=== PATIENT | female | born 1995 | race African-American/Black ===

== ENCOUNTER 2020-08-14 11:12 | Emergency (ER) | payer OTHER, SELFPAY ==
[2020-08-14] VITALS (7 sets, daily range): BP systolic 119–128; BP diastolic 82–91; PULSE 65–74; RESP 16–20; TEMP 36.2; O2SAT 99–100
--- NOTE | ~2020-08-14 | XR_ITS ---
EXAMINATION: XR chest 2V DATE: 08/14/2020 11:35 INDICATION: Chest pain. Right arm pain. Hemoptysis. TECHNIQUE: Frontal and lateral views of the chest were obtained. COMPARISON: None. FINDINGS: The chest demonstrates clear lungs without pneumonia, pleural effusion, or pneumothorax. Th e heart size is normal. A catheter overlies the abdomen. IMPRESSION: 1. No acute cardiopulmonary disease. Reviewed, dictated and finalized at location A.
--- NOTE | 2020-08-14 11:14 | ECG_ITS ---
Measurements Intervals [place] Rate: 73 P: 50 MD: 168 QRS: 34 QRSD: 80 T: 28 QT: 359 QTc: 396 Interpretive Statements SINUS RHYTHM WITH SINUS ARRHYTHMIA INCOMPLETE RIGHT BUNDLE BRANCH BLOCK BASELINE ARTIFACT- I, II, AVR, V1 BORDERLINE ECG Electronically Signed On 08-14-2020 12:45:47 CDT by Cameron Brock D.O.
--- NOTE | 2020-08-14 11:46 | ED.CHESTPAIN ---
HPI - Chest Pain General Chief Complaint: Chest Pain Stated Complaint: RIGHT sided CP and RIGHT arm pain Time Seen by Provider: 08/14/20 11:46 Source: patient Mode of arrival: ambulatory Limitations: no limitations History of Present Illness HPI narrative: Patient is a 25-year-old female who presents via EMS for evaluation of chest pain. Chest pain is right-sided in nature with radiation to the left chest as well. She does have pain with a deep breath or pain with movement. She is denying any current shortness of breath for me. She states that pain began when she was moving pallets at work. Pain is currently moderate in nature. No associated radiation of the pain to the jaw, neck, back, or flanks. No ripping or tearing sensation. No associated weakness or numbness. No diaphoresis or syncope. Patient is not on control. She does not smoke. She denies history of sudden cardiac in the family. She denies any history of coronary artery disease. She denies palpitations. No recent travel. She did have COVID four months ago. Denies hospitalization from that illness. Related Data Allergies Allergy/AdvReac Type Severity Reaction Status Date / Time No Known Allergies Allergy Verified 08/14/20 12:31 Review of Systems Review of Systems: Narrative: CONSTITUTIONAL: Denies fever, chills, or sweats. EYES: Denies visual changes, redness, or discharge. ENT: Denies rhinorrhea, congestion, sore throat, or otalgia. CARDIOVASCULAR: Reports chest pain without palpitations or leg edema RESPIRATORY: Denies cough or dyspnea. GASTROINTESTINAL: Denies abdominal pain, nausea, vomiting, or diarrhea. GENITOURINARY: Denies dysuria or hematuria. SKIN: Denies rash or itching. MUSCULOSKELETAL: Denies back pain, joint pain, or myalgia. NEUROLOGIC: Denies headache, numbness, or weakness. Exam Narrative: Exam Narrative: GENERAL: Awake, alert, conversant HEAD: Normocephalic, atraumatic. EYES: PERRLA and EOMI. ENT: Nares clear, no rhinorrhea or epistaxis. Mucous membranes moist. NECK: Supple. CHEST: No respiratory distress, breathing even and non labored, reproducible left and right-sided chest wall tenderness, no crepitus, no ecchymoses HEART: Regular rate, sinus rhythm ABDOMEN:Non distended, non tender EXTREMITIES: Normal range of motion. No edema. No calf tenderness or erythema bilaterally. SKIN: Warm, dry, no rash. NEURO:No focal deficits. Alert and oriented x3 Course Vital Signs Vital signs: Vital Signs Temperature 36.2 C L 08/14/20 11:19 Pulse Rate 74 08/14/20 11:19 Respiratory Rate 16 08/14/20 11:19 Blood Pressure 120/84 08/14/20 11:19 Pulse Oximetry 100 08/14/20 11:19 Temperature 36.2 C L 08/14/20 11:19 Pulse Rate 71 08/14/20 14:35 Respiratory Rate 20 08/14/20 14:35 Blood Pressure 119/82 08/14/20 14:35 Pulse Oximetry 100 08/14/20 14:35 MDM - Chest Pain MDM Narrative Medical decision making narrative: Patient's EKG and labs are without significant high risk changes. Cardiac risk factors reviewed. Patient is felt low risk for ACS and reasonable for further risk stratification testing as an outpatient. Pain was not sudden or maximal or onset without tearing or ripping quality. No other signs or symptoms to suggest aortic dissection. A low risk well's criteria is noted, patient is PERC negative, thus d dimer not obtained as PE is felt to be unlikely. No pneumonia seen on evaluation today. Two negative troponin in the ED. because pain is reproducible on exam and was occurred with movement of a heavy pallet, this is most likely musculoskeletal chest wall strain. Patient is felt to be a reasonable candidate for continued evaluation as an outpatient as pain is most likely musculoskeletal in nature. Differential Diagnosis Differential diagnosis: Likely stable angina, unstable angina pectoris, atypical chest pain, st elevation myocardial infarction, costochondritis and chest pain Lab Data Attestation: I reviewed the patien
[2020-08-14 12:23] LABS: Basophils Percent Auto 0.3 % (0.2-1.2); Eosinophils Absolute Auto 0.2 K/mm3 (0-0.3); Eosinophils Percent Auto 2.4 % (0-4.4); Hematocrit 36.3 % (37.0-47.0); Hemoglobin 11.7 g/dL (12.0-15.0); Immature Granulocyte Absolute 0.04 K/mm3 (0.00-0.031); Immature Granulocyte Percent A 0.5 % (0-0.5); Lymphocytes Absolute Auto 1.91 K/mm3 (0.9-3.2); Mean Corpuscular HGB Conc 32.2 g/dl (32-36); Mean Corpuscular Hemoglobin 29.1 pg (26-34); Mean Corpuscular Volume 90.3 fl (80-100); Mean Platelet Volume 10.1 fl (7.4-10.4); Monocytes Absolute Auto 0.4 K/mm3 (0.1-0.6); Monocytes Percent Auto 4.9 % (2.6-8.5); Neutrophils Absolute Auto 6.1 K/mm3 (1.3-6.7); Neutrophils Percent Auto 69.9 % (45.5-73.1); Platelet Count Result 374 k/mm3 (150-375); Red Blood Count 4.02 M/mm3 (4.2-5.4); Red Cell Distribution Width 12.5 % (11.5-14.5); White Blood Count 8.7 K/mm3 (4.5-10.0)
[2020-08-14 12:28] LABS: Anion Gap 5 mmol/L (8-16); Blood Urea Nitrogen 8 mg/dL (7-17); Calcium 8.9 mg/dL (8.4-10.2); Carbon Dioxide 25 mmol/L (22-30); Chloride 110 mmol/L (98-107); Estimated CRCL calculation 98 ml/min; Estimated Glomerular Filt Rate > 60; Glucose 93 mg/dL (65-105); Sodium 140 mmol/L (137-145)
[2020-08-14 12:33] LABS: INR 0.9; Prothrombin Time 13.1 Seconds (11.1-14.7)
[2020-08-14 12:34] LABS: Partial Thromboplastin Time 24.5 SECONDS (22.3-36.8)
[2020-08-14] MEDS: ASPIRIN 81 MG CHEWABLE TABLET 324 MG PO (12:36)
[2020-08-14 12:40] LABS: Troponin I < 0.012 ng/mL (0.000-0.034)
[2020-08-14] MEDS: KETOROLAC 15 MG/ML VIAL (*BKC) IV PUSH (13:42)
[2020-08-14] MEDS: ACETAMINOPHEN 500 MG TABLET 1000 MG PO (13:43)
[2020-08-14 15:43] LABS: Troponin I < 0.012 ng/mL (0.000-0.034)
== END 2020-08-14 16:05 | disposition home or self-care (01) ==
PROVIDERS: Emergency Provider Emergency Medicine; PCP Family Medicine
DX: R07.89 Other chest pain (principal); S29.011A Strain of muscle and tendon of front wall of thorax, initial encounter; X58.XXXA Exposure to other specified factors, initial encounter; Z86.16 Personal history of COVID-19
CPT/HCPCS: 36415; 71046; 80048; 84484; 85025; 85610; 85730; 93005; 96374; 99284; A9270; J1885

== ENCOUNTER 2023-09-12 19:00 | Emergency (ER) | payer OTHER, SELFPAY ==
--- NOTE | ~2023-09-12 | US_ITS ---
EXAMINATION: US OB <= 14 weeks fetus DATE: 09/12/2023 22:44 INDICATION: Miscarriage. Spotting. TECHNIQUE: Real-time transabdominal and transvaginal pelvic ultrasound was performed. COMPARISON: None. FINDINGS: TRANSABDOMINAL ULTRASOUND: The uterus measures 16.2 x 0.1 x 10.7 cm. TRANSVAGINAL ULTRASOUND: There are 2 intrauterine gestational sacs by a thick membrane. The placentas are anterior and posterior. There is a small subchorionic hematoma. The crown rump length measures 5.3 cm for fetus A, which correlates with an estimated gestational age of 12 weeks an d 0 day(s) (+/-) 1 week(s) and 1 day(s). heart motion is identified measuring 157 beats per min xander (bpm) by M-mode Doppler. The crown rump length measures 5.3 cm for fetus B, which correlate s with an estimated gestational age of 12 weeks and 0 day(s) (+/-) 1 week(s) and 1 day(s). hear t motion is identified measuring 152 beats per minute (bpm) by M-mode Doppler. The right ovary measur es 3.5 x 1.8 x 2.2 cm. The left ovary measures 3.9 x 2.6 x 2.9 cm. There is no free fluid in the pelv is. IMPRESSION: 1. Living intrauterine dichorionic, diamniotic twin fetuses. 2. Small subchronic hematoma. Reviewed, dictated and finalized at location A.
[2023-09-12 19:03] VITALS: BP 137/73; PULSE 87; RESP 18; TEMP 36.4; O2SAT 99
[2023-09-12] MEDS: SODIUM CHLORIDE 0.9% IV 1,000 ML 999 ML IV CONT (20:16)
[2023-09-12] MEDS: ONDANSETRON INJ 4 MG/2 ML VIAL IV PUSH (20:16)
[2023-09-12] MEDS: MORPHINE SULFATE (*CRX) 4 MG/ML INJ IV PUSH (20:18)
[2023-09-12 20:32] LABS: Basophils Percent Auto 0.2 % (0.2-1.2); Eosinophils Absolute Auto 0.2 K/mm3 (0-0.3); Eosinophils Percent Auto 1.4 % (0-4.4); Hematocrit 36.2 % (37.0-47.0); Hemoglobin 12.3 g/dL (12.0-15.0); Immature Granulocyte Absolute 0.07 K/mm3 (0.00-0.031); Immature Granulocyte Percent A 0.5 % (0-0.5); Lymphocytes Absolute Auto 2.04 K/mm3 (0.9-3.2); Lymphocytes Percent Auto 14.8 % (18.3-44.2); Mean Corpuscular Hemoglobin 30.1 pg (26-34); Mean Corpuscular Volume 88.7 fl (80-100); Mean Platelet Volume 10.3 fl (7.4-10.4); Monocytes Absolute Auto 0.8 K/mm3 (0.1-0.6); Monocytes Percent Auto 5.8 % (2.6-8.5); Neutrophils Absolute Auto 10.7 K/mm3 (1.3-6.7); Neutrophils Percent Auto 77.3 % (45.5-73.1); Platelet Count Result 318 k/mm3 (150-375); Red Blood Count 4.08 M/mm3 (4.2-5.4); Red Cell Distribution Width 12.3 % (11.5-14.5); White Blood Count 13.8 K/mm3 (4.5-10.0)
[2023-09-12 20:36] LABS: Appearance Urine Cloudy (Clear); Bacteria Urine Rare /hpf; Bilirubin Urine Negative (Negative); Blood Urine 3+ (Negative); Color Urine Yellow (Yellow); Glucose Urine UA Negative (Negative); Ketones Urine Negative (Negative); Leukocyte Esterase Ur Trace LEU/UL (Negative); Nitrate Urine Negative (Negative); Non Pathogenic Casts 0-2; Protein Urine Trace mg/dL (Negative); RBC Urine 51-100 /hpf (0-2); Specific Grav Ur 1.009 (1.001-1.035); Squamous Epithelial Cell Urine Occasional /hpf (Few); pH Urine 6.5 (5.0-9.0)
[2023-09-12 20:42] LABS: Alanine Aminotransferase 13 U/L (6-35); Albumin Level 3.9 g/dL (3.5-5.1); Alkaline Phosphatase 88 U/L (38-126); Anion Gap 9 mmol/L (4-12); Aspartate Amino Transferase 18 U/L (14-36); Bilirubin,Total 0.3 mg/dL (0.2-1.3); Blood Urea Nitrogen 5 mg/dL (7-17); Calcium 9.4 mg/dL (8.4-10.2); Carbon Dioxide 19 mmol/L (22-30); Chloride 106 mmol/L (98-107); Estimated CRCL calculation 143 ml/min; Estimated Glomerular Filt Rate > 60; Glucose 85 mg/dL (65-110); Potassium 3.7 mmol/L (3.4-5.0); Sodium 134 mmol/L (137-145)
[2023-09-12 20:49] LABS: Add Urine Microscopic? YES
--- NOTE | 2023-09-12 21:21 | ED.BACK ---
HPI - Back Pain/Injury General Chief Complaint: Back Pain/Injury Stated Complaint: back pain, spotting (12 weeks ) Time Seen by Provider: 09/12/23 19:33 History of Present Illness HPI Narrative: 28 YEARS OLD FEMALE WOKE UP THIS MORNING WITH LOWER BACK PAIN. PATIENT IS TELLING ME THAT SHE IS PROBABLY CONSTIPATED, LAST BOWEL MOVEMENT WAS THIS MORNING, LAST 1 BEFORE THIS MORNING WAS 5 DAYS AGO. PATIENT REPORT LOWER ABDOMINAL PAIN FOR THE LAST 4 HOURS. ASSOCIATED WITH NAUSEA. PATIENT HAVE HISTORY OF NAUSEA AND VOMITING SECONDARY TO . PATIENT IS 12 WEEKS , TWINS,. CURRENTLY ON VITAMIN AND ZOFRAN. PATIENT DROVE HERSELF TO THE EMERGENCY ROOM. SHE DENIES ANY FEVER OR CHILLS OR VAGINAL BLEEDING OR DISCHARGE. PATIENT NOTICED SOME BLOOD IN HER URINE TODAY. Related Data Allergies Allergy/AdvReac Type Severity Reaction Status Date / Time No Known Allergies Allergy Verified 09/12/23 19:05 Review of Systems Review of Systems: All systems reviewed & are unremarkable except as noted in HPI and below Exam Narrative: GENERAL APPEARANCE: WELL-DEVELOPED, WELL-NOURISHED SKIN: NORMAL COLOR HEAD: NORMOCEPHALIC, NONTRAUMATIC EYES: CLEAR CONJUNCTIVA ENT: OROPHARYNX NORMAL, EARS NORMAL, NOSE NORMAL NECK: SUPPLE, NONTENDER CHEST AND RESPIRATORY: AIRWAY PATENT, NO RESPIRATORY DISTRESS, NO ACCESSORY MUSCLE USE HEART: REGULAR RATE/RHYTHM ABDOMEN: SOFT, SLIGHT TENDERNESS SUPRAPUBIC AREA, NO GUARDING OR REBOUND, NO ORGANOMEGALY, QUIET BOWEL SOUNDS PELVIC EXAM SHOWED NO BLOOD IN THE VAGINAL POUCH. VASCULAR: NORMAL PERIPHERAL PULSES, NORMAL CAPILLARY REFILL. 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, NO GROSS MOTOR DEFICIT Course Vital Signs Vital signs: Vital Signs Temperature 36.4 C 09/12/23 19:03 Pulse Rate 87 09/12/23 19:03 Respiratory Rate 18 09/12/23 19:03 Blood Pressure 137/73 09/12/23 19:03 Pulse Oximetry 99 09/12/23 19:03 Oxygen Delivery Room Air 09/12/23 19:03 Temperature 36.4 C 09/12/23 19:03 Pulse Rate 87 09/12/23 19:03 Respiratory Rate 18 09/12/23 19:03 Blood Pressure 137/73 09/12/23 19:03 Pulse Oximetry 99 09/12/23 19:03 Oxygen Delivery Room Air 09/12/23 19:03 MDM - Back Pain/Injury MDM Narrative Medical decision making narrative: PATIENT CAME WITH BLOOD IN URINE, LOWER BACK PAIN SHE SAID WITH NAUSEA, PHYSICAL EXAMINATION IS UNREMARKABLE DIFFERENTIAL DIAGNOSIS URINARY TRACT INFECTION, CONSTIPATION BLOOD WORKUP TODAY SHOWED NO ACUTE ABNORMALITIES, URINALYSIS POSITIVE FOR HEMATURIA WHICH HIGH LIKELY SECONDARY TO INFECTION. VAGINAL EXAM SHOWED NO BLOOD IN THE VAGINAL POUCH INDICATING THE BLOOD ONLY IN THE URINE. PATIENT WILL BE DISCHARGED ON AMOXICILLIN FOR POSSIBLE URINARY TRACT INFECTION. PELVIC ULTRASOUND SHOWED Differential Diagnosis Differential diagnosis: Likely other ( ABOVE) Medical Records Attestation: I reviewed the patient's medical records. Lab Data Attestation: I reviewed the patient's lab results. 09/12/23 20:25 09/12/23 20:25 Labs: Lab Results 09/12/23 Range/Units 20:25 WBC 13.8 H (4.5-10.0) K/mm3 RBC 4.08 L (4.2-5.4) M/mm3 Hgb 12.3 (12.0-15.0) g/dL Hct 36.2 L (37.0-47.0) % MCV 88.7 (80-100) fl MCH 30.1 (26-34) pg MCHC 34.0 (32-36) g/dl RDW 12.3 (11.5-14.5) % Plt Count 318 (150-375) k/mm3 MPV 10.3 (7.4-10.4) fl Immature Gran % (Auto) 0.5 (0-0.5) % Neut % (Auto) 77.3 H (45.5-73.1) % Lymph % (Auto) 14.8 L (18.3-44.2) % [place] %
[2023-09-13] MEDS: AMOXICILLIN 500 MG CAPSULE PO (00:18)
== END 2023-09-13 00:56 | disposition home or self-care (01) ==
PROVIDERS: Emergency Provider Emergency Medicine; PCP Family Medicine
DX: O23.41 Unspecified infection of urinary tract in pregnancy, first trimester (principal); N39.0 Urinary tract infection, site not specified; O30.041 Twin pregnancy, dichorionic/diamniotic, first trimester; Z3A.12 12 weeks gestation of pregnancy
CPT/HCPCS: 36415; 76801; 80053; 81001; 85025; 85461; 86850; 86900; 86901; 87086; 96361; 96374; 96375; 99284; A9270; J2270; J2405; J7030

== ENCOUNTER 2023-10-26 14:56 | Emergency (ER) | payer OTHER, SELFPAY ==
--- NOTE | ~2023-10-26 | US_ITS ---
EXAMINATION: US OB limited DATE: 10/26/2023 16:55 INDICATION: 19 weeks twins, pain, confirm FHT . TECHNIQUE: Real-time ultrasound of the pelvis was performed. COMPARISON: 09/12/2023. FINDINGS: Twin . The cervix is closed. Baby A: Breech presentation, longitudinal lie. The placenta is anterior. 1.8 x 4.9 x 0.9 cm hypoecho ic avascular area in the placenta, likely placental ulloa. heart rate is 161 bpm. The deepest am niotic fluid pocket measures 3.1 cm. Baby B: Breech presentation, transverse lie. The placenta is anterior. heart rate 151 bpm. Deep est amniotic fluid pocket measures 5.7 cm. IMPRESSION: Viable twin , both in breech presentation. Reviewed, dictated and finalized at location K.
[2023-10-26 14:59] VITALS: BP 126/58; PULSE 87; RESP 18; TEMP 36.4; O2SAT 100
--- NOTE | 2023-10-26 15:32 | PC.NURSE ---
Wendie spoke with Cass in OB and she is going to come and monitor for contractions
--- NOTE | 2023-10-26 15:59 | ED.ABDPAIN ---
HPI - Abdominal Pain General Chief Complaint: Abdominal Pain Stated Complaint: abdominal pain/ back pain 19 weeks Time Seen by Provider: 10/26/23 15:31 Source: patient Mode of arrival: ambulatory Limitations: no limitations History of Present Illness HPI narrative: Patient is a 28 y/o female who presents to the ED with c/o lower abdominal pain. Patient is A1 and currently 19 weeks gestation with twins. Sees Izzy Gregory PRIMARY CARE NURSE with OBGYN in [place], [place]. Last had an appt 2 weeks ago with an and states everything was normal. Reports she began having lower back pain since last night. Also reports having lower abdominal pain for the last 2 hours. States it is intermittent. Prompted here for further evaluation. She has not taken any Tylenol. Denies nausea, vomiting, diarrhea, constipation, fevers. She does admit to intermittent dysuria. Denies hematuria, vaginal bleeding. Related Data Allergies Allergy/AdvReac Type Severity Reaction Status Date / Time No Known Allergies Allergy Verified 09/12/23 19:05 Review of Systems Review of Systems: CONSTITUTIONAL: Denies fever, chills, or sweats. GASTROINTESTINAL: See HPI. GENITOURINARY: See HPI. MUSCULOSKELETAL: See HPI. All systems reviewed & are unremarkable except as noted in HPI and below Exam Narrative: GENERAL: Well appearing, BMI of 32.9, non-toxic, in no acute distress. HEAD: Normocephalic, atraumatic. RESPIRATORY: Airway patent, respirations nonlabored. Clear to auscultation bilaterally, no rales, rhonchi, wheezing. CARDIOVASCULAR: Regular rate and rhythm without murmurs, rubs, or gallops. ABDOMINAL: Soft, uterus gravid near umbilicus, mild tenderness over lower abdomen, suprapubic region. Nondistended. Normoactive BS. MUSCULOSKELETAL: Moves all extremities. No gross deformities. SKIN: Warm, dry, normal color. NEURO: A&O X3. Speech clear. PSYCHIATRIC: Appropriate mood and affect. Normal interaction. Course Vital Signs Vital signs: Vital Signs Temperature 97.6 F 10/26/23 14:59 Pulse Rate 87 10/26/23 14:59 Respiratory Rate 18 10/26/23 14:59 Blood Pressure 126/58 L 10/26/23 14:59 Pulse Oximetry 100 10/26/23 14:59 Oxygen Delivery Room Air 10/26/23 14:59 Temperature 98.3 F 10/26/23 18:18 Pulse Rate 75 10/26/23 18:18 Respiratory Rate 18 10/26/23 18:18 Blood Pressure 135/72 10/26/23 18:18 Pulse Oximetry 95 10/26/23 18:18 Oxygen Delivery Room Air 10/26/23 14:59 MDM - Abdominal Pain MDM Narrative Medical decision making narrative: Patient presented to ED with lower abdominal and lower back pain. Currently 19 weeks gestation, twin . Vitals are stable. Patient in no acute distress. OB ultrasound was obtained and showing viable twin , both in breech position, good heart tones. Basic laboratory studies fairly unremarkable. WBC 14.4. Patient denies infectious sx's. May be related. Hgb 10.6. Patient denying any recent bleeding. CMP unremarkable. UA appears infected, will treat given status and acute symptomatology. OB came to monitor patient in the ED, no contractions noted. Good FHT. Patient updated on lab and imaging findings. Will discharge at this time with oral abx. Advised to have close f/u with OBGYN for further evaluation. patient feeling better after Tylenol. Discussed strict return precautions. She agrees with plan and feels comfortable with discharge home. Discharged in stable condition. Medical Records Attestation: I reviewed the patient's medical records. Lab Data Attestation: I reviewed the patient's lab results. 10/26/23 17:22 10/26/23 17:22 Labs: Lab Results 10/26/23 Range/Units 17:22 WBC 14.4 H (4.5-10.0) K/mm3 RBC 3.45 L (4.2-5.4) M/mm3 Hgb 10.6 L (12.0-15.0) g/dL Hct 31.9 L (37.0-47.0) % MCV 92.5 (80-100) fl MCH 30.7 (26-34) pg MCHC 33.2 (32-36) g/dl RDW 13.5
--- NOTE | 2023-10-26 17:04 | PC.NURSE ---
Patient is 19 weeks with twins, denies complications with , patient reports this is her third . Difficulty tracing babies due to getational age. Baby A noted to be 160's. Baby B noted to be 155. No contractions noted or palpated during monitoring. Monitored from [id number] for contractions. FHT's be traced at 1652.
[2023-10-26 17:34] LABS: Basophils Percent Auto 0.2 % (0.2-1.2); Eosinophils Absolute Auto 0.2 K/mm3 (0-0.3); Eosinophils Percent Auto 1.4 % (0-4.4); Hematocrit 31.9 % (37.0-47.0); Hemoglobin 10.6 g/dL (12.0-15.0); Immature Granulocyte Percent A 0.7 % (0-0.5); Lymphocytes Absolute Auto 1.91 K/mm3 (0.9-3.2); Lymphocytes Percent Auto 13.3 % (18.3-44.2); Mean Corpuscular HGB Conc 33.2 g/dl (32-36); Mean Corpuscular Hemoglobin 30.7 pg (26-34); Mean Corpuscular Volume 92.5 fl (80-100); Mean Platelet Volume 10.4 fl (7.4-10.4); Monocytes Percent Auto 6.6 % (2.6-8.5); Neutrophils Absolute Auto 11.2 K/mm3 (1.3-6.7); Neutrophils Percent Auto 77.8 % (45.5-73.1); Platelet Count Result 296 k/mm3 (150-375); Red Blood Count 3.45 M/mm3 (4.2-5.4); Red Cell Distribution Width 13.5 % (11.5-14.5); White Blood Count 14.4 K/mm3 (4.5-10.0)
[2023-10-26] MEDS: ACETAMINOPHEN 500 MG TABLET 1000 MG PO (17:34)
[2023-10-26 17:44] LABS: Alanine Aminotransferase 18 U/L (6-35); Albumin Level 3.3 g/dL (3.5-5.1); Alkaline Phosphatase 90 U/L (38-126); Anion Gap 5 mmol/L (4-12); Aspartate Amino Transferase 30 U/L (14-36); Bilirubin,Total 0.3 mg/dL (0.2-1.3); Blood Urea Nitrogen 5 mg/dL (7-17); Calcium 9.4 mg/dL (8.4-10.2); Carbon Dioxide 22 mmol/L (22-30); Chloride 109 mmol/L (98-107); Estimated CRCL calculation 125 ml/min; Estimated Glomerular Filt Rate > 60; Glucose 90 mg/dL (65-110); Potassium 3.7 mmol/L (3.4-5.0); Sodium 136 mmol/L (137-145)
[2023-10-26 17:50] LABS: Appearance Urine Turbid (Clear); Bacteria Urine 4+ /hpf; Bilirubin Urine Negative (Negative); Blood Urine Negative (Negative); Calcium Oxalate Crystals Urine Present /hpf; Color Urine Dark Yellow (Yellow); Glucose Urine UA Negative (Negative); Ketones Urine Trace mg/dL (Negative); Leukocyte Esterase Ur 2+ LEU/UL (Negative); Nitrate Urine Negative (Negative); Non Pathogenic Casts 0-2; Protein Urine Trace mg/dL (Negative); Specific Grav Ur 1.029 (1.001-1.035); Squamous Epithelial Cell Urine Many /hpf (Few)
[2023-10-26 17:51] LABS: Add Urine Microscopic? YES
[2023-10-26 18:18] VITALS: BP 135/72; PULSE 75; RESP 18; TEMP 36.8; O2SAT 95
== END 2023-10-26 18:21 | disposition home or self-care (01) ==
PROVIDERS: Emergency Provider Physician Assistant
DX: O23.42 Unspecified infection of urinary tract in pregnancy, second trimester (principal); N39.0 Urinary tract infection, site not specified; Z3A.19 19 weeks gestation of pregnancy
CPT/HCPCS: 36415; 76815; 80053; 81001; 85025; 87086; 87088; 99284; A9270

== ENCOUNTER 2025-03-29 09:54 | Emergency (ER) | payer OTHER, SELFPAY ==
--- NOTE | ~2025-03-29 | US_ITS ---
EXAMINATION: Ultrasound pelvis OB limited: DATE: 03/29/2025. INDICATION: 4, para 3. Positive test. Lower abdominal pain. No mention of vaginal bleeding. TECHNIQUE: Transabdominal and transvaginal ultrasound examination Doppler. were obtained. COMPARISON: None previous of this . FINDINGS: Single live fetus is noted in an intrauterine gestation. [place]-rump length of 3.2 cm corresponds to 10 weeks 1 day of gestational age placing the new date on 10/25/2015. heart rate is calculated at 1 71 bpm. Fluid volume is normal. Posterior placenta. Cervix is not completely visualized. No adnexal mass or fluid collections. Normal size ovaries with perfusion. No free fluid. IMPRESSION: 1. Intrauterine uterine gestational sac with single live fetus 10 weeks 1 day in size. Normal heart rate. 2. No adnexal mass or fluid collections are seen. Reviewed, dictated and finalized at location T. 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 Intrauterine uterine gestational sac with single live fetus 10 weeks 1 day i n size. Normal heart rate. 2. No adnexal mass or fluid collections are seen.
[2025-03-29 10:03] VITALS: BP 132/67; PULSE 84; RESP 17; TEMP 36.4; O2SAT 99
[2025-03-29 11:20] LABS: BEDSIDEPREGUCG Positive (Negative)
[2025-03-29 12:24] LABS: Add Urine Microscopic? YES; Appearance Urine Cloudy (Clear); Budding Yeast Urine Present /hpf; Glucose Urine UA Negative (Negative); Leukocyte Esterase Ur 2+ LEU/UL (Negative); Need Manual Microscopic Reviewed; Nitrate Urine Negative (Negative); Specific Grav Ur 1.028 (1.001-1.035)
[2025-03-29] MEDS: HYDROcodone/acetaminophen (*CRX) 5-325 MG TABLET 1 TAB PO (12:37)
[2025-03-29 13:22] LABS: Alanine Aminotransferase 13 U/L (6-35); Albumin Level 4.0 g/dL (3.5-5.1); Alkaline Phosphatase 95 U/L (38-126); Anion Gap 8 mmol/L (4-12); Aspartate Amino Transferase 22 U/L (14-36); Bilirubin,Total 0.5 mg/dL (0.2-1.3); Blood Urea Nitrogen 6 mg/dL (7-17); Calcium 9.0 mg/dL (8.4-10.2); Carbon Dioxide 20 mmol/L (22-30); Chloride 106 mmol/L (98-107); Estimated CRCL calculation 114 ml/min; Estimated Glomerular Filt Rate > 60; Glucose 79 mg/dL (65-110); Potassium 4.1 mmol/L (3.4-5.0); Sodium 134 mmol/L (137-145); Total Protein 7.6 g/dL (6.3-8.2)
--- NOTE | 2025-03-29 13:25 | ED_ITS ---
HPI - Back Pain/Injury General Chief Complaint: Back Pain/Injury Stated Complaint: back pain/ abd cramping + preg Time Seen by Provider: 03/29/25 12:19 History of Present Illness HPI Narrative: Pt presents with pain in lower abdomen and low back. Pt has some vaginal spotting and unsure if on menses or miscarrying as she spotted a lot during her last . Pt denies urinary symptoms. Related Data Allergies Allergy/AdvReac Type Severity Reaction Status Date / Time No Known Allergies Allergy Verified 03/29/25 09:55 Review of Systems 2 Review of Systems: All systems reviewed & are unremarkable except as noted in HPI and below Exam 2 Const: General: healthy appearing and no acute distress Nutritional Appearance: well nourished Orientation/consciousness: patient oriented x3 Limitations: no limitations Eyes: Pupils: Equal, round and reactive pupils present EOM: EOMs intact bilaterally Neck: Neck: normal visual inspection Resp: Effort & Inspection: normal respiratory effort Auscultation: clear to auscultation bilaterally Cardio: Rate: regular rate Rhythm: regular rhythm GI: Auscultation: normal bowel sounds Other: mild suprapubic tenderness Back/Spine/Pelvis: Other: minimal low lumbar tenderness Skin: General skin exam: normal color Rashes: no rashes Wounds: no wounds Neuro: General: patient oriented x3, moves all extremities, no meningeal signs, no focal motor deficits and CN's II-XI intact bilaterally Speech: n ormal speech Extrem: General: normal to inspection and no clubbing, cyanosis or edema Psych: Mental Status: mental status grossly normal Affect: normal affect Attitude: cooperative Course Vital Signs Vital signs: Vital Signs Temperature 97.6 F 03/29/25 10:03 Pulse Rate 84 03/29/25 10:03 Respiratory Rate 17 03/29/25 10:03 Blood Pressure 132/67 03/29/25 10:03 Pulse Oximetry 99 03/29/25 10:03 Temperature 97.6 F 03/29/25 10:03 Pulse Rate 85 03/29/25 18:41 Respiratory Rate 16 03/29/25 18:41 Blood Pressure 116/58 L 03/29/25 18:41 Pulse Oximetry 99 03/29/25 18:41 MDM - Back Pain/Injury MDM Narrative Medical decision making narrative: Pt presents with low abd pain and low back pain. will get hcg and ua and labs. Pt has high BHCG will get sono. sono shows iup pt also has uti and yeast in urine. will put on antibiotics and monistat Differential Diagnosis Differential diagnosis: Likely lumbar radiculopathy, sciatica, strain of lumbar region and other (uti, pregnanct miscarriage, menses) Lab Data Attestation: I reviewed the patient's lab results. 03/29/25 12:45 03/29/25 12:45 Labs: Lab Results 03/29/25 03/29/25 03/29/25 Range/Units 10:07 11:43 12:45 WBC 10.1 H (4.5-10.0) K/mm3 RBC 4.22 (4.2-5.4) M/mm3 Hgb 12.5 (12.0-15.0) g/dL Hct 37.7 (37.0-47.0) % MCV 89.3 (80-100) fl MCH 29.6 (26-34) pg MCHC 33.2 (32-36) g/dl RDW 13.1 (11.5-14.5) % Plt Count 307 (150-375) k/mm3 MPV 10.6 H (7.4-10.4) fl Immature Gran % (Auto) 0.4 (0-0.5) % Neut % (Auto) 72.0 (45.5-73.1) % Lymph % (Auto) 19.0 (18.3-44.2) % [place] % (Auto) 6.3 (2.6-8.5) % Eos % (Auto) 2.0 (0-4.4) % Baso % (Auto) 0.3 (0.2-1.2) % Lymph # (Auto) 1.92 (0.9-3.2) K/mm3 [place] # (Auto) 0.6 (0.1-0.6) K/mm3 Eos # (Auto) 0.2 (0-0.3) K/mm3 Baso # (Auto) 0.0 (0.0-0.1) K/mm3 Abs Immat Gran (auto) 0.04 H (0.00-0.031) K/mm3 Absolute Neuts (auto) 7.3 H (1.3-6.7) K/mm3 Absolute Nucleated RBC 0.000 (0.0-0.012) K/mm3 Nucleated RBC % 0.0 (0.0-0.2) % Sodium 134 L (137-145) mmol/L Potassium 4.1 (3.4-5.0) mmol/L Chloride 106 (98-107) mmol/L Carbon Dioxide 20 L (22-30) mmol/L Anion Gap 8 (4-12) mmol/L BUN 6 L (7-17) mg/dL Creatinine 0.65 L (0.7-1.0) mg/dL Estim Creat Clear Calc 114 ml/min Estimated GFR > 60 (59 - ) Glucose 79 (65-110) mg/dL Calcium 9.0 (8.4-10.2) mg/dL Total Bilirubin 0.5 (0.2-1.3) mg/dL AST 22 (14-36) U/L ALT 13 (6-35) U/L Alkaline Phosphatase 95 (38-126) U/L Total Protein 7.6 (6.3-8.2) g/dL Albumin 4.0 (3.5-5.1) g/dL Beta HCG, Quant 238517.00 mIU/ML Urine Color Yellow (Yellow) Urine Appearance Cloudy H (Clear) Urine pH 5.5 (5.0-9.0) Ur Specific [place] 1.028 (1.001-1.035) Urine Protein Trace (Negative) mg/dL Urine Glucose (UA) Negative (Negative) mg/dL Urine Ketones Trace H (Negative) mg/dL Ur Blood (Man) Trace (Negative) Urine Nitrate Negative (Negative) Urine Bilirubin Negative (Negative) Urine Urobilinogen 1.0 (<2.0) mg/dL Add Ur Microanalysis Reviewed Leukocyte Esterase Rfl 2+ H (Negative) OCTAVIO/UL Urine RBC 3-5 H (0-2) /hpf Urine WBC 51-100 H (0-3) /hpf Ur Squamous Epith Cells Moderate (Few) /hpf Urine Bacteria 4+ H /hpf Urine Casts 6-10 Urine Yeast (Budding) Present H (None) /hpf POC Urine HCG, Qual Positive (Negative) Blood Type B Positive Antibody Screen Negative Imaging Data Radiologist's impression: [facility] [address] [place] [id number] Ultrasound Report Signed Patient: Murphy Hardwick : 1995 MR#: [id number] Age: 30 Acct:[id number] Loc: [facility] ADM Date: 03/29/[address]: Ordering Physician: Suly Mcgowan III, DO Date of Service: 03/29/25 Procedure(s): US OB <= 14 weeks fetus Accession Number(s): [id number] cc: Suly Mcgowan III, ~ EXAMINATION: Ultrasound pelvis OB limited: DATE: 03/29/2025. INDICATION: 4, para 3. Positive test. Lower abdominal pain. No mention of vaginal bleeding. TECHNIQUE: Transabdominal and transvaginal ultrasound examination Doppler. were obtained. COMPARISON: None previous of this . FINDINGS: Single live fetus is noted in an intrauterine gestation. Clarence-rump length of 3.2 cm corresponds to 10 weeks 1 day of gestational age placing the new date on 10/25/2015. heart rate is calculated at 1 71 bpm. Fluid volume is normal. Posterior placenta. Cervix is not completely visualized. No adnexal mass or fluid collections. Normal size ovaries with perfusion. No free fluid. IMPRESSION: 1. Intrauterine uterine gestational sac with single live fetus 10 weeks 1 day in size. Normal heart rate. 2. No adnexal mass or fluid collections are seen. Reviewed, dictated and finalized at location T. SERGEANT Please be advised this is a medical document. It is intended for [id number] communication. It is written in medical language and may contain unfamiliar abbreviations or verbiage. Medical documents are intended to carry relevant information, facts as evident, and the clinical opinion of the practitioner at the time of the encounter. This report may have been done utilizing a voice recognition system. Attempts have been made to correct errors. However, there may be uncorrected grammatical, spelling, and recognition errors present. The file time of this note does not necessarily represent the time of service. Dictated By: Angie Wakefield 03/29/25 1712 Signed By: <Electronically signed by Angie Wakefield in OV> Discharge Plan Discharge Clinical Impression: Confirmed intrauterine on ultrasound, UTI (urinary tract infection) Patient Disposition: Home Condition: Stable Instructions: Antibiotic Form, Abdominal Pain in (ED), Urinary Tract Infection in (ED) Patient Language: Kinyarwanda Prescriptions: New cephalexin 500 mg capsule 500 mg PO Q8H Qty: 15 0RF tioconazole [1-Day] 6.5 % ointment 1 appful vaginal ONCE Qty: 4.6 0RF Rx Instructions: administer at bedtime No Action ibuprofen 400 mg tablet 400 mg PO TID PRN (Reason: fever or pain) 10 Days Qty: 30 0RF acetaminophen 500 mg capsule 500 mg PO Q6H PRN (Reason: fever or pain) Qty: 30 0RF amoxicillin 875 mg tablet 875 mg PO Q12H Qty: 20 0RF cephalexin 500 mg capsule 500 mg PO Q6H 7 Days Qty: 28 0RF Follow-up/Referrals: UNKNOWN,DOCTOR [Primary Care Provider]
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
--- OUTSIDE RECORDS SUMMARY | 2025-03-29 13:36 | XMS_ITS | Data Portability ---
Author Organization [facility] Leti Arts , [facility] Address [address] [place] [address] Care Team Providers Care Critical Care Physician Assistant Name Role Phone [facility] Pet[facility] Assessment Encounter Date Assessment Date Assessment LastModified by Organization Details LastModified Time 03/25/2024 03/25/2024 Pt was concerned about discharge around incision she has noticed. Small amount of serous discharge below incision line appears to be from hair follicle. Incision w/o erythema, swelling, or increased tenderness. S/s of infection discussed. [email or web address] Not available 03/25/2024 14:42:29 Plan of Treatment Reminders Order Date Submit Date Provider Last Modified By Organization Details Last Modified Time Details Appointments None recorded. Lab test, urine 2024 025 [email or web address] [facility], [address] [place], [address], 5 11:51:49 unlisted lab - STD screening ([facility]) 2024 025 Dasdak, [address] [place], [address], 5 14:45:15 STI panel 2024 025 [facility] Nadir, [address] [place], [address], 5 11:03:35 unlisted lab - STD screening ([facility]) 2024 025 [facility], [address] [place], [address], 5 16:57:55 bacterial vaginosis + vaginitis panel, vaginal 2024 025 [facility], [address] [place], [address], 5 17:27:16 urinalysis, dipstick 2024 025 [email or web address] [facility], [address] [place], [address], 5 13:16:16 culture, urine 2024 025 [facility], [address] [place], [address], 22:00:08 Referral None recorded. Procedures None recorded. Surgeries None recorded. Imaging US, obstetric, biophysical profile + non-stress test 2023 024 [email or web address] Not available 4 14:59:15 Medication Orders Vitamin 27 mg iron-0.8 mg tablet 2024 025 [id number], [address] [facility], [place], [place], [id number], 5 11:51:56 Depo-Tray Delivery Aide a 150 mg/mL intramuscul ar syringe [address] [id number], [address] , [place], [place], [id number], 5 11:27:12 Patient TargetsNo targets recorded. Patient Instructions Encounter Date Encounter Id Patient Instructions Last Modified By Organization Details Last Modified Time 03/16/2025 [id number] [facility] Booklet [email or web address] Not available 03/16/2025 11:51:49 exposure to sexually transmitted infections: care instructions [email or web address] Not available 03/16/2025 11:51:49 Reason for Referral None Reported. Results Created Date Observation Date Name Description Value Unit Range Abnormal Flag Note LastModifiedBy Organization Detail LastModifiedTime 02/08/20 24 02/10/2024 PROT/ CREAT - U RANDO M protein, urine 40.5 mg/dL <11.9 high Not Available [facility] Nadir [address] [place] [address], [address], 02/10/2024 16:09:09 02/08/20 24 02/10/2024 PROT/ CREAT - U RANDO M creatinine, urine 277 mg/dL 20 - 275 high Not Available [address], [address], 02/10/2024 16:09:09 02/08/20 24 02/10/2024 PROT/ CREAT - U RANDO M protein/crea tinine ratio, random urine 0.147 mg/mg _crea t 0.024 - 0.184 normal Not Available [address], [address], 02/10/2024 16:09:09 02/08/20 24 02/11/2024 STI PANEL trichomonas vaginalis TRICH neg negati ve normal Not Available [address], [address], 02/11/2024 14:02:09 02/08/20 24 02/11/2024 STI PANEL chlamydia trachomatis CT neg negati ve normal This repor t is inten ded for us in clini angelo monit oring and manag ement of patie nts. It is not inten ded for use in medic al-le gal appli catio n. Not Available [place] Nadir [address] [place] [address], [address], 02/11/2024 14:02:09 02/08/20 24 02/11/2024 STI PANEL neisseria gonorrhoeae GC neg negati ve normal This repor t is inten ded for us in clini angelo monit oring and manag ement of patie nts. It is not inten ded for use in medic al-le gal appli catio n. Not Available [place] Nadir [address] [place], [address], 02/11/2024 14:02:09 02/29/20 24 03/03/2024 STREP TOCOC CUS, GROUP B CULTU RE streptococcu s, group B culture SEE NOTE STREP TOCOC CUS, GROUP B CULTU RE Micro Numbe r: [id number] Test Statu s: Final Speci men Sourc e: Recto vagin al Speci men Quali ty: Adequ ate Resul t: No group B Strep tococ cus isola vance Note per CDC guide lines optim al recov khris is achie maddi by swabb ing both the lower vagin a and rectu m (thro ugh the anal sphin cter) . Not Available [facility] [place] [address] [place], [address], 03/03/2024 10:35:47 05/31/19 25 06/01/2024 CULTU RE, URINE , ROUTI NE culture, urine, routine SEE NOTE CULTU RE, URINE , ROUTI NE Micro Numbe r: [id number] Test Statu s: Final Speci men Sourc e: Urine Speci men Quali ty: Adequ ate Resul t: No Growt h Not Available [facility] [address] [place], [address], 06/01/2024 22:00:07 05/31/19 25 06/03/2024 VAGIN ITIS PLUS STD PANEL bacterial vaginosis BV POS negati ve abnormal Not Available [place] Nadir [address] [place], [address], 06/03/2024 17:27:16 05/31/19 25 06/03/2024 VAGIN ITIS PLUS STD PANEL kvng species C. spp neg negati ve normal Not Available [place] Nadir [address] [place], [address], 06/03/2024 17:27:16 05/31/19 25 06/03/2024 VAGIN ITIS PLUS STD PANEL kvng glabrata C. gla neg negati ve normal Not Available [place] Nadir [address] [place], [address], 06/03/2024 17:27:16 05/31/19 25 06/03/2024 VAGIN ITIS PLUS STD PANEL trichomonas vaginalis CV/TV TRICH POS negati ve abnormal Not Available [place] Nadir [address] [place], [address], 06/03/2024 17:27:16 05/31/19 25 06/03/2024 VAGIN ITIS PLUS STD PANEL chlamydia trachomatis CT neg negati ve normal This repor t is inten ded for us in clini angelo monit oring and manag ement of patie nts. It is not inten ded for use in medic al-le gal appli catio n. Not Available [place] Nadir [address] [place], [address], 06/03/2024 17:27:16 05/31/19 25 06/03/2024 VAGIN ITIS PLUS STD PANEL neisseria gonorrhoeae GC neg negati ve normal This repor t is inten ded for us in clini angelo monit oring and manag ement of patie nts. It is not inten ded for use in medic al-le gal appli catio n. Not Available [place] Nadir [address] [place], [address], 06/03/2024 17:27:16 05/31/19 25 05/31/2024 STD BLOOD SCREE LEILA ([facility] ) STD blood screening ([facility]) d order - No specim en receiv ed to NADIR as of 2023 Not Available [facility] ol [address] [place], [address], 06/16/2024 16:57:54 05/31/19 25 05/31/2024 urina lysis , dipst ick Leukocytes Modera te Not Available [facility] [address] [place], [address], 05/31/2024 12:17:25 05/31/19 25 05/31/2024 urina lysis , dipst ick Nitrite negati ve Not Available [address], [place], [address], 05/31/2024 12:17:25 05/31/19 25 05/31/2024 urina lysis , dipst ick Urobilinogen 2 Not Available [address], [place], [address], 05/31/2024 12:17:25 05/31/19 25 05/31/2024 urina lysis , dipst ick Protein 30 Not Available [address], [place], [address], 05/31/2024 12:17:25 05/31/19 25 05/31/2024 urina lysis , dipst ick pH 6.5 Not Available [address], [place], [address], 05/31/2024 12:17:25 05/31/19 25 05/31/2024 urina lysis , dipst ick Blood Negati ve Not Available [address], [place], [address], 05/31/2024 12:17:25 05/31/19 25 05/31/2024 urina lysis , dipst ick Specific Surprise 1.015 Not Available [address], [place], [address], 05/31/2024 12:17:25 05/31/19 25 05/31/2024 urina lysis , dipst ick Ketone Negati ve Not Available [address], [place], [address], 05/31/2024 12:17:25 05/31/19 25 05/31/2024 urina lysis , dipst ick Bilirubin Negati ve Not Available [address], [place], [address], 05/31/2024 12:17:25 05/31/19 25 05/31/2024 urina lysis , dipst ick Glucose Negati ve Not Available [address], [place], [address], 05/31/2024 12:17:25 05/31/19 25 05/31/2024 urina lysis , dipst ick Appearance Slight ly Cloudy Not Available [address], [place], [address], 05/31/2024 12:17:25 05/31/19 25 05/31/2024 urina lysis , dipst ick Color Dark Yellow Not Available [address], [place], [address], 05/31/2024 12:17:25 03/16/20 25 03/17/2025 STD BLOOD SCREE LEILA ([facility] ) hep BS Ag Non-Re active non-re active normal Not Available [address], [address], 03/17/2025 14:45:15 03/16/20 25 03/17/2025 STD BLOOD SCREE LEILA ([facility] ) hep C Ab Non-Re active non-re active normal Not Available [facility] [address] [place], [address], 03/17/2025 14:45:15 03/16/20 25 03/17/2025 STD BLOOD SCREE LEILA ([facility] ) HIV 1/2 Ag/Ab Non-Re active non-re active normal Not Available [address], [address], 03/17/2025 14:45:15 03/16/20 25 03/17/2025 STD BLOOD SCREE LEILA ([facility] ) syphilis Ab Non-Re active non-re active normal Not Available [address], [address], 03/17/2025 14:45:15 03/16/20 25 03/17/2025 STI PANEL chlamydia trachomatis CT neg negati ve normal This repor t is inten ded for use in clini angelo monit oring and manag ement of patie nts. It is not inten ded for use in medic al-le gal appli catio n. Not Available [address], [address], 03/18/2025 11:03:35 03/16/20 25 03/17/2025 STI PANEL neisseria gonorrhoeae GC neg negati ve normal This repor t is inten ded for use in clini angelo monit oring and manag ement of patie nts. It is not inten ded for use in medic al-le gal appli catio n. Not Available [address], [place], [address], 03/18/2025 11:03:35 03/16/20 25 03/17/2025 STI PANEL trichomonas vaginalis TRICH neg negati ve normal Not Available [address], [address], 03/18/2025 11:03:35 03/16/20 25 03/16/2025 pregn cici test, urine HCG positi ve Not Available [address], [place], [address], 03/16/2025 11:45:10 02/08/20 24 US, obste tric, bioph ysica l profi le No observ ation record ed. [email or web address] [address] [place], [address], 02/08/2024 14:06:46 02/08/20 US, obste tric, bioph ysica l profi le No observ ation record ed. negra [facility] [address] [place], [address], 02/08/2024 14:07:03 02/09/2002/08/2024 US, obste tric, bioph ysica l profi le No observ ation record ed. negra [address] [address], [place], [address], 02/10/2024 09:36:43 02/22/2002/22/2024 US, obste tric No observ ation record ed. [facility] [address], [address], 03/04/2024 12:56:51 02/29/2002/29/2024 , obste tric No observ ation record ed. [facility] [address], [address], 03/04/2024 12:57:41 03/03/2003/03/2024 , obste tric, bioph ysica l profi le + non-s tress test No observ ation record ed. [email or web address] Lucina [address], [place], [address], 03/03/2024 16:53:35 Result Notes None recorded. Problems Name Problem SNOMED Code Status Onset Date Resolution Date Notes Provider Name and Address Organization Details Recorded Time Dichorio luca diamniot ic twin pregnanc y 632542402 Active Di/Di. Seeing MFM. See Above POC. Ngoc Mcgee, BRADEN [address] [place], [address] , [facility] [employer] IV 4 14:02:26 Dichorio luca diamniot ic twin pregnanc y [id number] Completed Di/Di. Seeing MFM. See Above POC. Ngoc Lombardi Arely, [address], [address] , [facility] [employer] [facility] IV 4 14:02:26 Body mass index 30+ - obesity 503878521 Active BMI 32.5 on intake. HgA1C 4.9. GTT 131. Ngoc Lombardi Arely, [address], [address] , [facility] [employer] IV 4 14:03:29 Body mass index 30+ - obesity 797767589 Completed BMI 32.5 on intake. HgA1C 4.9. GTT 131. Ngoc Lombardi Arely, [address], [address] , [facility] [employer] IV 4 14:03:29 Genital herpes simplex 63229550 Active P[address]AVI [address], [address] , [facility] [employer] IV 4 12:22:59 Genital herpes simplex 78201247 Completed PALLAVI MENDEZ [address], [address] , [facility] [employer] IV 4 12:22:59 High risk pregnanc y 68520555 Completed NOB labs: B+/RI/NR x4. Last Pap: 05/2022 ASCUS, HPV neg. GTT: 131 GBS: TBD @ 36 wks. Aneuploi dy screenin g: [facility] NIPT & MSAFP WNL. Anatomy Scan: Complete X 2 with [facility] on 11/10/23. Pregnanc y Hx: [id number] A1L2, Delivery Methods: Vag X Ngocnicolas Mcgee, [address], [address] , [facility] [employer] IV 4 14:04:18 High risk pregnanc y 72586056 Active NOB labs: B+/RI/NR x4. Last Pap: 05/2022 ASCUS, HPV neg. GTT: 131 GBS: TBD @ 36 wks. Aneuploi dy screenin g: [facility] NIPT & MSAFP WNL. Anatomy Scan: Complete X 2 with [facility] on 11/10/23. Pregnanc y Hx: [id number] A1L2, Delivery Methods: Vag X BRADEN Comer [address] [place] [address], [address] , [facility] [employer] IV 4 14:04:18 Past pregnanc y history of gestatio nal hyperten agapito 524822975 Completed with G1, had MgSO4 in the hospital during delivery /post . on LD ASA. Baseline Plt/AST/ ALT WNL in 12/2023. UPCR records not on file. --> Update 02/08/24: No ASA refills needed. BP: 118/68, Urine neg for protein. UPCR sent. Pt educated on HTN/PreE precauti ons and discusse d when to notify HCP/go to L&D. BRADEN Comer [address] [place] [address], [address] , [facility] [employer] [facility] IV 4 14:02:59 Past pregnanc y history of gestatio nal hyperten agapito 750577273 Active with G1, had MgSO4 in the hospital during delivery /post . on LD ASA. Baseline Plt/AST/ ALT WNL in 12/2023. UPCR records not on file. --> Update 02/08/24: No ASA refills needed. BP: 118/68, Urine neg for protein. UPCR sent. Pt educated on HTN/PreE precauti ons and discusse d when to notify HCP/go to L&D. BRADEN Comer [address] [place] [address], [place], [address] , [facility] [employer] IV 4 14:02:59 Candidal vulvovag initis 47703557 Completed 201512/14/2015 Yeast vaginiti s; Location : None Progress : Stable Added By: Sweetie Dove Add to Current Problems : YES ProblemS tatus: Resolve Not Available [facility] 2 22:06:31 Kvng infectio n of genital region Completed 201512/14/2015 Candidia sis of vulva and vagina; Progress : Stable Added By: Sweetie Dove Add to Current Problems : NO ProblemS tatus: Resolve [facility] Available [facility] 22:06[facility]30 Gestatio n period, 17 weeks 05095317 Completed 201507/16/2016 17 weeks gestatio n of pregnanc y; Progress : Stable Added By: Shyann Perera Add to Current Problems : NO ProblemS tatus: Resolve Not Available [facility] 22:06:31 Normal pregnanc y 86875684 Active 2015 Medical visit for normal pregnanc y; Location : None Progress : Stable Added By: Dinorah Jones Add to Current Problems : YES ProblemS tatus: Current Not Available [facility] 2 22:06:32 finding Completed 201504/27/2016 Maternal care for other known or suspecte d poor growth, third trimeste r, not applicab le or unspecif ied; Progress : Stable Added By: Jeanette Maravilla Add to Current Problems : NO ProblemS tatus: Resolve Not Available [facility] 2 22:06:32 Poor growth affectin g manageme nt 487072656 Completed 201504/27/2016 Pregnanc y affected by poor growth, antepart um conditio n or complica tion; Location : None Progress : Stable Added By: Jeanette Maravilla Add to Current Problems : YES ProblemS tatus: Resolve Not Available [facility] 2 22:06:[address] Concept Completed 201505/25/2016 Encounte r for follow-u p examinat ion after complete d treatmen t for conditio ns other than malignan t neoplasm ; Progress : Stable Added By: Maria E Mccormack Add to Current Problems : NO ProblemS tatus: Resolve Not Available [facility] 2 22:06:32 Gestatio n period, 25 weeks 47379243 Completed 201707/26/2018 25 weeks gestatio n of pregnanc y; Progress : Stable Added By: Dinorah Jones Add to Current Problems : NO ProblemS tatus: Resolve Not Available [facility] 2 22:06:33 Intraute rine synechia e 693654357 Completed 201707/26/2018 Intraute rine synechia e; Progress : Stable Added By: Shyann Perera Add to Current Problems : NO ProblemS tatus: Resolve Not Available [facility] 22:06:34 Gestatio n period, 29 weeks 06262296 Completed 201707/26/2018 29 weeks gestatio n of pregnanc y; Progress : Stable Added By: Paula Starks Add to Current Problems : NO ProblemS tatus: Resolve Not Available [facility] 2 22:06:30 Normal pregnanc y in [facility] [id number] 4106 Completed 201707/26/2018 Encounte r for supervis ion of other normal pregnanc y, second trimeste r; Progress : Stable Added By: Ana Gallo Add to Current Problems : NO ProblemS tatus: Resolve; Start Date : 10/15/19 16 Encou nter for supervis ion of other normal pregnanc y, third trimeste r; Progress : Stable Added By: Shyann Perera Add to Current Problems : NO ProblemS tatus: Resolve Not Available [facility] 2 22:06:33 Gestatio n period, 31 weeks 13185052 Completed 201707/26/2018 31 weeks gestatio n of pregnanc y; Progress : Stable Added By: Lissy Keller Add to Current Problems : NO ProblemS tatus: Resolve Not Available [facility] 22:06:30 Gestatio n period, 34 weeks 92542683 Completed 201807/26/2018 34 weeks gestatio n of pregnanc y; Progress : Stable Added By: Shyann Perera Add to Current Problems : NO ProblemS tatus: Resolve Not Available [facility] 2 22:06:31 Gestatio n period, 36 weeks 31808440 Completed 201807/26/2018 36 weeks gestatio n of pregnanc y; Progress : Stable Added By: Lissy Keller Add to Current Problems : NO ProblemS tatus: Resolve Not Available [facility] 2 22:06:30 Antenata l screenin g Completed 201807/26/2018 Antenata l screenin g; unspecif ied; Location : None Progress : Stable Added By: Dinorah Jones Add to Current Problems : YES ProblemS tatus: Resolve; Start Date : 03/15/20 18 Encou nter for antenata l screenin g of mother; Progress : Stable Added By: Dinorah Jones Add to Current Problems : NO ProblemS tatus: Resolve; Start Date : 10/15/19 16 Anten atal screenin g; unspecif ied; Location : None Progress : Stable Added By: Shyann Perera Add to Current Problems : YES ProblemS tatus: Resolve; Start Date : 10/15/19 16 Encou nter for antenata l screenin g for Streptoc occus B; Progress : Stable Added By: Lissy Keller Add to Current Problems : NO ProblemS tatus: Resolve Encounte r for anatomic survey; Location : None Progress : Stable Added By: Maria E Mccormack Add to Current Problems : YES ProblemS tatus: Current; Start Date : 02/13/20 18 Encou nter for other specifie d antenata l screenin g; Progress : Stable Added By: Ana Gallo Add to Current Problems : NO ProblemS tatus: Resolve; Start Date : 02/13/20 18 Not Available [facility] 22:06:32 Gestatio n period, 38 weeks 99341030 Completed 201807/26/2018 38 weeks gestatio n of pregnanc y; Progress : Stable Added By: Shyann Perera Add to Current Problems : NO ProblemS tatus: Resolve Not Available [facility] 2 22:06:31 Antenata l ultrasou nd finding 839818697 Completed 201801/03/2021 Encounte r for pregnanc y test, result unknown; Progress : Stable Added By: Dinorah Jones Add to Current Problems : NO ProblemS tatus: Resolve Not Available [facility] 2 22:06:29 Gestatio n period, 15 weeks 5840457 Completed 201801/03/2021 15 weeks gestatio n of pregnanc y; Progress : Stable Added By: Ana Gallo Add to Current Problems : NO ProblemS tatus: Resolve Not Available [facility] 2 22:06:33 Threaten ed miscarri age 21776854 Completed 202002/08/2021 Threaten ed ; Progress : Stable Added By: Lisa Parish Add to Current Problems : NO ProblemS tatus: Resolve Not Available [facility] 2 22:06:33 Sampling of vagina for Papanico laou smear Completed 202011/12/2022 Encounte r for gynecolo gical examinat ion (general ) (routine ) without abnormal findings ; Progress : Stable Added By: Lorie Canales Add to Current Problems : YES ProblemS tatus: Current Lisa Parish null, [place] [facility] 3 03:00:16 Screenin g for malignan t neoplasm of cervix Completed 202011/12/2022 Encounte r for screenin g for malignan t neoplasm of cervix; Progress : Stable Added By: Lorie Canales Add to Current Problems : YES ProblemS tatus: Current Lisa Parish null, [place] [facility] 3 03:00:11 Acute vaginiti s 89805882 Completed 202011/12/2022 Acute vaginiti s; Progress : Stable Added By: Lorie Canales Add to Current Problems : YES ProblemS tatus: Current Lisa Parish null, [place] [facility] 3 03:00:13 Pregnanc y 16336046 Completed 202208/27/2023 Tatiana Triplett null, [place] [facility] 5 11:56:17 Pregnanc y 54690381 Completed 202305/31/2024 Tatiana Triplett null, [place] [facility] 5 11:56:17 Iron deficien cy anemia of pregnanc y 844531927 Completed 2023 Hgb 9.9 at 28 wks. Hgb Elec WNL. Rx'd FeSO4 --> 02/08/24: Pt taking without complica tion. Plan to repeat CBC and Iron panel at 34 wks. Reminder in pop-up. BRADEN Comer [facility] [place], [address] , [facility] [employer] IV 4 14:03:15 Iron deficien cy anemia of pregnanc y 792479274 Active 2023 Hgb 9.9 at 28 wks. Hgb Elec WNL. Rx'd FeSO4 --> 02/08/24: Pt taking without complica tion. Plan to repeat CBC and Iron panel at 34 wks. Reminder in pop-up. BRADEN Comer [facility] [place], [address] , [facility] [employer] [facility] 4 14:03:15 growth restrict ion [id number] Completed 2023 Dx in 01/2024. U/S 11/09: A 24.2%/B 28.8%, 01/27: A 4%/B 8%. UA dopplers borderli ne increase d placenta l resistan ce X 2. S/P MFM consult. MFM Recommen dation: NST twice weekly, BPP+Dopp lers Weekly. Delivery between 36-38 wks. Last BPP 10/ x 2 with MFM on 02/02/24. --> Update 02/08/24: NST reassuri ng X 2, BPP 8/8 X 2 prior to leaving office. Pt has appt with MFM at 1:00 PM today. [facility] ed scheduli ng weekly NST with OBV with delivery provider s only for remainde r of pregnanc y. Pt also [facility] ed to keep all appts with MFM through remainde r of pregnanc y. Pt educated [facility], PTL precauti ons, and when to notify HCP/go to L&D. BRADEN Comer [address] [place], [address] , [facility] IV 4 14:02:03 Past pregnanc y history of pre-ecla mpsia [id number] 9100 Active 2023 Sweetie Dove MD [address] [facility], [place], [address] , [facility] IV 4 13:18:43 Notes:Test of Cure (V67.51) ; OnsetDate: 03/26/2016; ResolvedDate: 05/25/2016; Severity: Moderate Progress: Stable Added By: Maria E Mccormack Add to Current Problems: NO ProblemStatus: Resolve Encounter for anatomic survey (V28.81) ; OnsetDate: 02/12/2018; ResolvedDate: 05/17/2018; Progress: Stable Added By: Maria E Mccormack Add to Current Problems: NO ProblemStatus: Resolve Test of Cure (V67.51) ; OnsetDate: 03/26/2016; ResolvedDate: 05/25/2016; Progress: Stable Added By: Maria E Mccormack Add to Current Problems: NO ProblemStatus: Resolve screening; unspecified (V28.9) ; OnsetDate: 10/15/2015; ResolvedDate: 05/17/2018; Progress: Stable Added By: Dinorah Jones Add to Current Problems: NO ProblemStatus: Resolve Medical visit for normal (V22.1) ; OnsetDate: 10/15/2015; ResolvedDate: 05/17/2018; Progress: Stable Added By: Dinorah Jones Add to Current Problems: NO ProblemStatus: Resolve Problem Notes None recorded. Procedures Surgical History Date Name Laterality Status Provider Name and Address Organization Details Recorded Time 4 Depo Provera Injection completed Thuybob Bowers [facility] 03/25/2024 14:47:26 4 Depo Provera Injection completed Thuy Bowers [facility] 03/25/2024 14:46:36 4 Endometrial Biopsy cancelled Adelina Starks [facility] 03/14/2024 16:53:37 4 Suture/Staple removal cancelled Adelina Starks [place] [facility] 03/14/2024 16:53:49 4 section completed Joaquin Sol [facility] 03/25/2024 13:03:09 4 NST completed Sweetie Dove MD [address] [place] [address], [phone], [facility] 03/03/2024 13:39:28 4 NST-Twin B completed Sweetie Dove MD [address] [place] [address], [phone], [facility] 03/03/2024 13:39:47 4 NST completed Ngoc Mcgee ANN [address] [place] [address], [phone], [facility] 02/08/2024 14:00:25 4 NST-Twin B completed Ngoc Mcgee ANN [address] [place] [address], [phone], [facility] 02/08/2024 14:00:28 4 NST completed Rakesh Bernabe MD [address] [place] [address], [phone], [facility] 02/16/2024 18:20:20 3 Date of Last Pap Smear completed BRADEN Comer [address] [place] [address], [phone], [facility] 06/13/2022 09:53:06 2 Depo Provera Injection completed Thuy Bowers [place] [facility] 01/07/2022 16:50:55 Imaging Results None recorded. Procedure Notes None recorded. Medical Equipment None Reported. Allergies No known drug allergies Medications Name Sig Start Date Stop Date Status Note LastModified by Organization Details LastModified Time multivita min tablet TAKE 1 TABLET BY MOUTH EVERY DAY 01/07 completed Not Available Not Available Not Available ibuprofen 800 mg tablet 03/16 completed Not Available Not Available Not Available fluconazo le 150 mg tablet TAKE 1 TABLET BY MOUTH DIRECTED 09/07 completed Not Available Not Available Not Available valacyclo vir 1 gram tablet TAKE 1 TABLET BY MOUTH TWICE DAILY FOR 7 DAYS 09/07 completed Not Available Not Available Not Available promethaz ine 12.5 mg tablet Take 1-2 tablets PO every 4 hours as needed for nausea 03/16 completed Prometha zine HCl 12.5mg Tablet Allow Substitu tion: True Refill Denied: No Not Available Not Available Not Available pyridoxin e (vitamin B6) 25 mg tablet Take 1 tablet 3 times a day by oral route for 30 days. 11/09 completed Not Available Not Available Not Available metronida zole 0.75 % (37.5 mg/5 gram) vaginal gel 11/27 completed Not Available Not Available Not Available terconazo le 0.8 % vaginal cream INSERT 1 APPLICAT ORFUL VAGINALL Y EVERY DAY AT BEDTIME FOR 3 DAYS 11/27 completed Not Available Not Available Not Available metronida zole 500 mg tablet TAKE 1 TABLET BY MOUTH EVERY 12 HOURS FOR 7 DAYS 09/29 completed Not Available Not Available Not Available Reglan 10 mg tablet 1 po 6 hrs prn 01/26 completed Reglan 10mg Tablet RxNorm: 314404 Allow Substitu tion: True Refill Denied: No Not Available Not Available Not Available aspirin 81 mg tablet,de layed release Take 1 tablet every day by oral route, for Pre-Ecla mpsia preventi on. 05/31 completed Not Available Not Available Not Available acetamino phen 500 mg tablet TAKE 1 TABLET BY MOUTH EVERY 6 HOURS NEEDED FOR PAIN 01/07 completed Not Available Not Available Not Available amoxicill in 500 mg tablet TAKE 1 TABLET BY MOUTH TWICE DAILY 05/20 completed Not Available Not Available Not Available acyclovir 800 mg tablet TAKE 1 TABLET BY MOUTH EVERY DAY 01/07 completed Not Available Not Available Not Available ondansetr on 8 mg disintegr ating tablet DISSOLVE 1 TABLET ON THE TONGUE TWICE DAILY NEEDED 11/09 completed Not Available Not Available Not Available Vitamin tablet 10/28 completed Multivit campuzano RxNorm: 0 Allow Substitu tion: True Refill Denied: No Refill Note: No cancel reason selected Refill DateOccu rred: 03/15/20 18 Not Available Not Available Not Available oxycodone -acetamin ophen 5 mg-325 mg tablet TAKE 1 TABLET BY MOUTH EVERY 4 HOURS FOR UP TO 7 DAYS NEEDED FOR PAIN 05/31 completed Not Available Not Available Not Available amoxicill in 875 mg tablet TAKE 1 TABLET BY MOUTH EVERY 12 HOURS 10/13 completed Not Available Not Available Not Available famotidin e 20 mg tablet 1 Tab PO BID, take Iron at least 1 hour before 08/11 completed Famotidi ne 20mg Tablet RxNorm: 644847 Allow Substitu tion: True Refill Denied: No Not Available Not Available Not Available metoclopr amide 5 mg tablet TAKE 1 TABLET BY MOUTH EVERY 6 HOURS NEEDED 09/07 completed Not Available Not Available Not Available cephalexi n 500 mg capsule TAKE 1 CAPSULE BY MOUTH EVERY 6 HOURS FOR 7 DAYS 11/29 completed Not Available Not Available Not Available triamcino lone acetonide 0.1 % topical ointment APPLY THIN LAYER TOPICALL Y TO THE AFFECTED AREA TWICE DAILY 11/27 completed Not Available Not Available Not Available nystatin 100,000 unit/gram topical cream APPLY TOPICALL Y TO THE AFFECTED AREA TWICE DAILY 09/07 completed Not Available Not Available Not Available promethaz ine 25 mg tablet Take 1 tablet every 6 hours by oral route as needed. 11/09 completed May take 1/2 tablet instead of a full tablet Not Available Not Available Not Available docusate sodium 100 mg capsule Take 1 capsule every day by oral route. 09/07 completed Not Available Not Available Not Available clindamyc in 2 % vaginal cream Insert 1 applicat orful(s) in vagina at bedtime for 5 days 11/24 completed Clindamy jerri Phosphat e 2% Vaginal Cream RxNorm: 517335 Allow Substitu tion: True Refill Denied: No Not Available Not Available Not Available ibuprofen 600 mg tablet TAKE 1 TABLET BY MOUTH EVERY 6 HOURS NEEDED FOR PAIN 01/07 completed Not Available Not Available Not Available labetalol 300 mg tablet 03/16 completed Not Available Not Available Not Available Terazol 7 0.4 % vaginal cream Insert 1 applicat orful(s) in vagina at bedtime for 7 days 11/20 completed Terazol 7 0.4% Vaginal Cream RxNorm: 026767 Allow Substitu tion: True Refill Denied: No Refill Note: Auto Aged Refill DateOccu rred: 10/15/19 16 For Problem: Yeast vaginiti s Not Available Not Available Not Available Unisom (doxylami ne) 25 mg tablet Take 1 tablet by oral route at bedtime for 30 days. 02/21 completed Not Available Not Available Not Available medroxypr ogesteron e 150 mg/mL intramusc ular suspensio n ADMINIST ER 1 ML IN THE MUSCLE EVERY 3 MONTHS 06/02 completed Not Available Not Available Not Available Vitamin 27 mg iron-0.8 mg tablet Take 1 tablet every day by oral route. 2024 active Not Available Not Available Not Avai lable medroxypr ogesteron e 150 mg/mL intramusc ular syringe ADMINIST ER 1 ML IN THE MUSCLE EVERY 3 MONTHS 03/16 completed Not Available Not Available Not Available nitrofura ntoin monohydra te/macroc rystals 100 mg capsule TAKE 1 CAPSULE BY MOUTH EVERY 12 HOURS FOR 7 DAYS DIRECTED 05/20 completed Not Available Not Available Not Available ferrous sulfate Take 1 tab PO BID 10/24 completed Ferrous Sulfate 325mg Tablets RxNorm: 593965 Allow Substitu tion: True Refill Denied: No Not Available Not Available Not Available Prometriu m 1 PO BID 12/05 completed Prometri um 100mg Capsules RxNorm: 140761 Allow Substitu tion: True Refill Denied: No Refill Note: Auto Aged Refill DateOccu rred: 10/15/19 16 Not Available Not Available Not Available FeroSul 325 mg (65 mg iron) tablet TAKE 1 TABLET BY MOUTH TWICE DAILY active Not Available Not Available No t Available Se-Joel 19 Chewable 29 mg iron-1 mg tablet CHEW AND SWALLOW ONE TABLET EVERY DAY 04/30 /2024 completed Not Available Not Available Not Available 28 mg iron-800 mcg tablet Take 1 tablet every day by oral route. 01/31 completed Not Available Not Available Not Available Estarylla 0.25 mg-0.035 mg tablet TAKE 1 TABLET BY MOUTH EVERY DAY 01/07 completed Not Available Not Available Not Available ID NOW COVID-19 Test Kit TEST DIRECTED 05/20 completed Not Available Not Available Not Available Vitals Date Recorded Body height Body mass index (BMI) Body weight Systolic And Diastolic Provider Name and Address Organization Details Last Updated DateTime 05/31/2024 162.56 cm 33.9 kg/m2 72811.85 g 114/70 mm[Hg] Tatiana Triplett [facility] [employer] [facility] 05/31/2024 12:02:48 Date Recorded Body weight Body mass index (BMI) Body height Systolic And Diastolic Systolic And Diastolic Provider Name and Address Organization Details Last Updated DateTime 03/03/2024 59659.10 7342 g 37.2 kg/m2 162.56 cm 130/80 mm[Hg] 126/76 mm[Hg] Paula Starks [facility] [employer] IV 13:40:14 Date Recorded Body height Body mass index (BMI) Body weight Systolic And Diastolic Provider Name and Address Organization Details Last Updated DateTime 03/16/2025 162.56 cm 32.9 kg/m2 42979.3 g 110/60 mm[Hg] Dahlia Zhoupton [facility] [employer] IV 03/16/2025 11:30:34 Date Recorded Body height Body mass index (BMI) Body weight Systolic And Diastolic Provider Name and Address Organization Details Last Updated DateTime 03/25/2024 162.56 cm 31.4 kg/m2 21087.4 g 110/80 mm[Hg] Joaquin Sol [facility] [employer] IV 03/25/2024 13:02:37 Social History Question Answer Notes LastModified by Organizat ion Details LastModified Time Tobacco Smoking Status Never Smoker Lisa cui, [facility] [employer] [facility] 05/20/2021 15:06:46 Are You Blind Or Do You Have Difficulty Seeing? No Information not available 05/20/2021 Are You Deaf Or Do You Have Serious Difficulty Hearing? No Information not available 05/20/2021 What Type Of Diet Are You Following? REGULAR Information not available 05/20/2021 How Many Children Do You Have? 2 Information not available 05/20/2021 What Is Your Relationship Status? Single Information not available 05/20/2021 Are You Sexually Active? Yes Information not available 05/20/2021 Sex: Female Functional Status Question Answer Note LastModified by Organizat ion Details LastModified Time Do you use any illicit or recreational drugs? No Information not available 05/20/2021 Do you or have you ever used any other forms of tobacco or nicotine? No Information not available 05/20/2021 What is your level of alcohol consumption? None Information not available 11/12/2022 What is your exercise level? None Information not available 05/20/2021 Mental Status None recorded. Family History Relationship Description Onset Age of this Age Resolved Age Notes LastModified by Organization Details LastModified Time Maternal Aunt Malignant neoplasm of breast kbritsch Not available 2022 02:59:52 Maternal Grandmother Malignant neoplasm of breast kbritsch Not available 2022 02:59:52 Medical History Condition Response Other Cancer N High Blood Pressure Y Colon Cancer N Cytomegalovirus N Hyperthyroidism N MRSA N Blood Transfusion N Herpes (HSV) N Lung Cancer N Depression N Hypothyroidism N Incontinence N Panic Attacks N Neurological Disorder N Deep Vein Thrombosis N Anxiety Disorder N Autoimmune disease N Arthritis N Shingles N Tuberculosis/Positive PPD N Polycystic Ovarian Syndrome N Cervical Cancer N Chlamydia Y Hematuria N Stroke N Varicosities N Seasonal allergies N Crohn's Disease N Alzheimer's/Dementia N COPD/Emphysema N Endometriosis N HPV/Genital Warts N IBS (Irritable Bowel Syndrome) N History of Abnormal Pap N High Cholesterol N Liver Disease N Kidney Infection N Fibromyalgia N Ulcer N Kidney Disease N HIV N Gallbladder disease N Von Willebrand disease N Sickle Cell Disease/Trait N ADD/ADHD N Eating Disorder N Diabetes Mellitus (non-insulin dependent ) N Anemia N Ovarian Problems N Multiple Sclerosis N Gonorrhea N Frequent Urinary Tract infections N Osteopenia N Headaches/migraines N GERD (reflux) N Ovarian Cancer N Diabetes (insulin dependent) N Seizures/Epilepsy N Fibroids N Asthma N Heart Attack N Endometrial Cancer N Lupus N Rubella N Blood Clotting Disorder N Bipolar Disorder N Diabetes Mellitus (during ) N Ulcerative Colitis N Hepatitis N Heart Disease N Pulmonary Embolism N RPR N Chicken Pox N Osteoporosis N Gynecological History Statement/Question Response Flow Light Date of last HPV 06/02/2022 Date of LMP 01/09/2025 HPV Vaccine Y Duration of Flow (days) 3 Most Recent Mammogram Current Control Method None Age at Menarche 14 Date of Last Colonoscopy Most Recent Bone Density Date of Last Pap Smear 06/02/2022 Obstetrics History GPAL:G 4 P 4 0 1 4 Type Value Multiple Births 1 Full Term 4 Induced 1 Living 4 Total 4 Past Encounters Encounter ID Performer Location Encounter Start Date Encounter Closed Date Diagnosis/Indication Diagnosis SNOMED-CT Code Diagnosis ICD10 Code Diagnosis IMO Codes Diagnosis Note [id number] BRADEN rFances [address] [address] 05/20/2021 14:43:31 06/05/2021 12:59:48 Urinary tract infectious disease 68506240 N39.0 Screening for disorder 851254389 Z11.3 N89.9 Vaginal discharge 577040 006 N89.8 N76.0 Normal exam. Urge incon tinence of urine 76940766 N39.41 Samples of Myrbetriq 25 mg given. Instructio n of Kegel exercises given. [id number] MADDI Simon[address] [address] 01/07/2022 15:06:41 01/07/2022 16:58:11 Contraception care 010026443 Z30.09 Venereal d isease screening 921982492 Z11.3 Dysuria 50109178 R30.9 Encouraged to increase water intake. Avoid coffee, tea, soda, fruit juice, and alcohol. [id number] Melissa Archer CNM [address] [address] 01/07/2022 16:36:21 01/07/2022 17:07:00 Surveillance of depot contraception done 0048641855 9104 Z30.42 [id number] Ngoc Mcgee ANN [address] [address] 06/02/2022 15:37:39 06/03/2022 15:15:53 Vaginal discharge 367064040 N89.8 Pt educated on exam findings, and discussed POC. Vaginal cx collected and sent. Rx for Metrogel sent. Pt advised to avoid fragrant soaps/laun dry detergents , use of baking soda soaks, having partner change soaps, etc. Further POC pending lab result review. Screening for malignant neoplasm of cervix 633348602 Z12.4 ASCCP guidelines reviewed with pt. Pap collected and sent. Further POC pending lab result review. Pt states understand ing of POC. Irregular periods 133309 07 N92.6 Pt educated on bleeding profile of Depo Provera use and discussed tracking cycles on katherine as pt unsure of exact dates of previous cycles/how many days between cycles. Vaginal cx added to Pap collection . If labs WNL, plan to consider serum testing and TVUS if bleeding irregulari ty is persistent . Contracept ion care education 135924535 Z30.09 Pt educated on all available contracept gareth options. Pt declines interest in initiating hormonal contracept gareth method at this time. Pt encouraged to use condoms and take PNV daily. Pt to notify HCP if desires hormonal contracept gareth initiation in the future. Pt states understand ing of POC. [id number] PALLAVI MENDEZ [facility] [address] [place] [address] 09/11/2022 11:07:50 09/11/2022 15:04:24 Gynecologic examination 72452831 Z01.419 Screening for malignant neoplasm of cervix 854209325 Z12.4 ASCCP guidelines reviewed with patient. Pap Hx: No pap collected today. Pt states understand ing and is amenable to POC. Last PAP 05/2022 Contracept ion education 093989515 Z30.09 Contracept gareth counseling : Discussed options including OCPs, NuvaRing, Nexplanon, hormonal and copper IUDs. Discussed risks, efficacy, noncontrac eptive benefits, and side effects of each option, including risk of VTE with hormonal contracept ion and uterine perforatio n, expulsion, infection with IUD. Depression screening 171 300091 Z13.31 Screening for disorder 584474056 Z11.3 N89.9 Venereal d isease screening 793565341 Z11.3 [id number] ELA REDDY [facility] [address] [place] [address] 11/20/2022 13:56:50 11/20/2022 17:56:53 test positive 981520843 Z32.01 Pt presents today for a confirmati on of visit. has not been previously confirmed at another healthcare facility. Pt voiced that she is happy about this . Patient states she is having some nausea, but is not vomiting. TVUS today showed:IUP with Cardiac Activity. JOVAN based on this US. JOVAN: 06/04/2023G estational Age: 12w 3dFHT:167 First trimester teaching provided.- --Foods and activities to avoid---Sa fe meds---Patrice entation to practice-- -Delivery locations- --WILLIS visit progressio n---Prenat al vitamins daily--- Toxoplasmo sis precaution s reviewed-- -S/S of SAB reviewed and when to seek care RTC 1 week for 1st OB, Labs, and Physical. --BMI: 32.2 [id number] ELA REDDY 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 Would like to know gender. Discussed logging on to the [employer] portal to find Gender Results-- PAP up to date: 05/2022 ASCUS, HPV negative --BMI at Confirmati on: 32.2-Re-ev aluate BMI at 32 weeks -- Low dose Aspirin : 81 mg/day prophylaxi s is recommende d in women at high risk of preeclamps ia. Recommende d to be initiated at 12 weeks gestation. Risk Factors:(t wo present) Obesity (BMI >30), Race -- First Trimester Diabetes Screening: Recommende d. Screened with: hemoglobin A1CBMI >25 with one or more Risk Factors:-P hysical inactivity -GDM in prior OR previously given to >9lb baby-High risk ethnicity -- ACOG recomends TSH to be done at 1st OB if indicated- Not needed -- CHTN or hx of Pre-E: baseline labs CMP, P/C Ratio, Uric Acid- Not needed. -- LEEP hx: Cervical Length at 18, 20, and 22 weeks POC-- NOB labs done today-- Accepts [facility]-- PAP Up to Date-- Low dose aspirin recommende d-- Pre-Pregna ncy BMI: 32.2-- RTC 4 weeks Guide: Given and reviewed. Toxoplasmo sis precaution s reviewed. Reviewed office visit schedule during . Reviewed Quickening and normal FHTs. [id number] BRADEN [facility]EE[facility] [address] [place] [address] 09/08/2023 13:52:51 09/08/2023 15:04:26 test positive 561915984 Z32.01 Pt presents today for a confirmati on of visit. has not been previously confirmed at another healthcare facility. Pt voiced that she is happy about this . TVUS today showed:IUP with Cardiac Activity. JOVAN based on this US.Di/Di Twins. JOVAN: 03/28/2024 Gestationa l Age: 11w 1dFHT A: 176FHT B: 158 First trimester teaching provided.- --Foods and activities to avoid---We ight gain recommenda tions based on BMI---Safe meds---Patrice entation to practice-- -Delivery locations- --WILLIS visit progressio n---Prenat al vitamins daily---To xoplasmosi s precaution s reviewed-- -[facility] Guide; What to expect on your maternity journey-- -S/S of SAB reviewed and when to seek care RTC for 1st OB, Labs, and Physical. --BMI: 32.5 Nausea 757161722 R11.0 She has a rx for promethazi ne- will continue but add in Vitamin B6 and Unisom. [id number] BRADEN MEEH[facility] [address] [place] [address] 09/17/2023 11:40:04 09/17/2023 13:23:48 Normal 44539127 Z34.91 Pt comes in today for a New/First OB visit. Di/Di twins -- PMH: No PMH-- Medication s: Taking daily PNV, not taking any other medication s-- Previous OB History: Vaginal delivery x 2-- Mom/Sister s with hx of Pre-Eclamp adam: Denies-- History of Genital HSV: Yes-- Genetic Questions in OB Episode Done-- Accepts [employer]. Would like to know gender. Discussed logging on to the [employer] portal to find Gender Results POC-- NOB labs done today-- Accepts [employer]-- PAP up to date-- Low dose aspirin recommende d-- Pre-Pregna ncy BMI: 32.5-- RTC 4 weeks screening 2437 26334 Z36.89 Dichorioni c diamniotic twin 255433776 O30.041 -- Low dose Aspirin : 81 mg/day prophylaxi s is recommende d in women at high risk of preeclamps ia. Recommende d to be initiated at 12 weeks gestation. Body mass index 30+ - obesity 568594532 Z68.32 BMI 32.5 at Confirmati on Visit Gestation period, 12 weeks 48039002 Z3A.12 Guide: Given and reviewed. Toxoplasmo sis precaution s reviewed. Reviewed office visit schedule during . Reviewed Quickening and normal FHTs. Nausea and vomiting 1693 1999 O21.9 I recommend starting Vitamin B6 2-3 times daily and Unisom. This combinatio n helps the best with nausea in early . Zofran in is not recommende d, especially in the first trimester. It has shown possible risk of teratogeni city, including oral cleft and cardiovasc ular defects. It use should be used based on a risk vs benefit. If you are okay with the above risks I can send it in. Otherwise, I can send in a prescripti on for the Unisom and B6. Carrier de tection, molecular genetics 3856637 Z14.8 [id number] [facility] [address] [place] [address] 10/14/2023 09:54:46 10/14/2023 13:13:38 Gestation period, 16 weeks 82845058 Z3A.16 Body mass index 30+ - obesity 331254425 Z68.32 Dichorioni c diamniotic twin 850012993 O30.041 -- Low dose Aspirin : 81 mg/day prophylaxi s is recommende d in women at high risk of preeclamps ia. Recommende d to be initiated at 12 weeks gestation. Genital he rpes simplex 20235019 A60.9 care status 24 5972702 Z34.92 Pt is here for a WILLIS appointmen t. She is taking vitamins. She has no complaints or questions. Reports feeling movement. Denies vaginal bleeding, abdominal cramps, N/V, contractio ns, or LOF. Denies headache, vision changes, swelling of hands or face, and epigastric pain. Discussed PTL and precaution s given. There are no identifiab le risk factors for pre-term labor. Reminded pt that I do not delivery babies. Patient en counter status 925135716 Z36.9 [id number] Melissa Archer CNM [facility] [address] [place] [address] 11/10/2023 10:07:26 11/10/2023 14:21:07 Body mass index 30+ - obesity 638115826 Z68.32 Dichorioni c diamniotic twin 512198669 O30.041 Genital he rpes simplex 50163005 A60.9 High risk 4720 0007 O09.892 Additional diagnosis detail: Supervisio n of other high risk pregnancie s, second trimester screening for malformation 885012115 Z36.3 screening 2437 68721 Z36.86 [id number] JOHANA MEEHANBC [facility] [address] [place] [address] 11/30/2023 15:43:34 11/30/2023 16:31:55 Body mass index 30+ - obesity 527821175 Z68.32 Dichorioni c diamniotic twin 371330753 O30.041 -- Low dose Aspirin : 81 mg/day prophylaxi s is recommende d in women at high risk of preeclamps ia. Recommende d to be initiated at 12 weeks gestation. Genital he rpes simplex 40289718 A60.9 High risk 4720 0007 O09.892 Pt is here for a WILLIS appointmen t. She is taking vitamins. She has no complaints or questions. Reports feeling movement. Denies vaginal bleeding, abdominal cramps, N/V, contractio ns, or LOF. Denies headache, vision changes, swelling of hands or face, and epigastric pain. Discussed PTL and precaution s given. There are no identifiab le risk factors for pre-term labor. Reminded pt that I do not delivery babies. Gestation period, 23 weeks 40570532 Z3A.23 Additional diagnosis detail: 23 weeks gestation of [id number] PALLAVI MENDEZ [place] [place] [address] 12/28/2023 10:34:00 12/28/2023 17:46:59 Gestation period, 27 weeks 12050758 Z3A.27 1309686 screening 2437 88925 Z36.9 [id number] care status 24 0697381 Z34.92 [id number] Pt is here for a WILLIS appointmen t. She is taking vitamins. She has no complaints or questions. Reports feeling movement. Denies vaginal bleeding, abdominal cramps, N/V, contractio ns, or LOF. Denies headache, vision changes, swelling of hands or face, and epigastric pain. Discussed PTL and precaution s given. There are no identifiab le risk factors for pre-term labor. Reminded pt that I do not delivery babies. Venereal d isease screening 193628629 Z11.3 [id number] PALLAVI MNEDEZ [facility] [address] [place] [address] 01/12/2024 10:13:25 01/12/2024 16:36:31 Gestation period, 29 weeks 55047330 Z3A.29 [id number] care status 24 6628815 Z34.93 [id number] Pt is here for a WILLIS appointmen t. She is taking vitamins. She has no complaints or questions. Denies vaginal bleeding, abdominal cramps, N/V, contractio ns, and LOF. Denies headache, vision changes, swelling of hands or face, and epigastric pain. Reports feeling movement. Discussed Movement Counts. 28 Week Visit:TDAP Education and Order given.RhoG am: Not neededDisc ussed pediatrici an selection and pre registerin g with hospital.P Govind Contracept ion: Options discussed and unsure at this time. Discussed PTL and precaution s given. There are no identifiab le risk factors for pre-term labor. Reminded pt that I do not delivery babies. Recommende d pt see a Delivery provider next visit so she has the chance to meet everyone. Dichorioni c diamniotic twin [id number] O30.041 -- Low dose Aspirin : 81 mg/day prophylaxi s is recommende d in women at high risk of preeclamps ia. Recommende d to be initiated at 12 weeks gestation. Genital he rpes simplex 35327406 A60.9 Body mass index 30+ - obesity 574931480 Z68.32 Iron defic iency anemia of 982404705 O99.019 D50.9 31963836 [id number] Rakesh Bernabe MD [address] [address] 01/26/2024 14:51:59 01/26/2024 16:44:20 Dichorionic diamniotic twin 220085460 O30.778 3280594 Gestation period, 31 weeks 01639538 Z3A.31 5546791 grow th restriction 77995432 O36.5990 7996370 [id number] Rakesh Bernabe MD [address] [address] 02/01/2024 10:28:36 02/17/2024 13:11:38 Dichorionic diamniotic twin 711395362 O30.550 7007914 grow th restriction 00740860 O36.5990 3550728 Gestation period, 32 weeks 1519334 Z3A.32 4507465 MFM will see her on for BPP and we will see her on Mondays for NST. [id number] BRADEN Comer [facility] [address] [place] [address] 02/08/2024 10:34:44 02/08/2024 15:29:40 High risk 34903055 O09.93 01290322 1. IUP FWB reassuring by NST & BPP 12/18 X 2. Aneuploidy screening: [facility] NIPT & MSAFP WNL. Anatomy Scan: Complete X 2 with [facility] on 11/10/23.2. NOB labs: B+/RI/NRx4 . Last Pap: 05/2022 ASCUS, HPV neg. GTT: 131 GBS: TBD @ 36 wks.3. Hx: [id number] L2, Delivery Methods: Vag X 2.4. IUGR - Dx in 01/2024. U/S 11/09: A 24.2%/B 28.8%, 01/27: A 4%/B 8%. UA dopplers borderline increased placental resistance X 2. S/P MFM consult. MFM Recommenda tion: NST twice weekly, BPP+Dopple rs Weekly. Delivery between 36-38 wks. Last BPP 02/17 x 2 with MFM on 02/02/24. --> Update 02/08/24: NST reassuring X 2, BPP 8/8 X 2 prior to leaving office. Pt has appt with MFM at 1:00 PM today. Encouraged scheduling weekly NST with OBV with delivery providers only for remainder of . Pt also encouraged to keep all appts with MFM through remainder of . Pt educated FKC, PTL precaution s, and when to notify HCP/go to L&D.5. Twin Gestation - Di/Di. Seeing MFM. See Above POC.6. H/O GHTN/PreE - with G1, had MgSO4 in the hospital during delivery/p ost . on LD ASA. Baseline Plt/AST/AL T WNL in 12/2023. UPCR records not on file. --> Update 02/08/24: No ASA refills needed. BP: 118/68, Urine neg for protein. UPCR sent. Pt educated on HTN/PreE precaution s and discussed when to notify HCP/go to L&D.7. Anemia - Hgb 9.9 at 28 wks. Hgb Elec WNL. Rx'd FeSO4 --> 02/08/24: Pt taking without complicati on. Plan to repeat CBC and Iron panel at 34 wks. Reminder in pop-up.8. Obesity - BMI 32.5 on intake. HgA1C 4.9. GTT 131.9. GCCT Missing from NOB labs. Sent via urine on 02/08/24.10 . FLU, TDAP, RSV vaccine informatio n discussed on 02/08/24. Pt has already had COVID booster.9. Delivery Plans: [facility]. Declines tour/class es. Pt advised to see delivery providers only for remainder of . 10. PP Contracept ion Plans: Follow up in 1 week. screening 2437 69845 Z36.9 2839371 Past pregn cici history of gestational hypertension 532010671 Z87.59 56211216 Dichorioni c diamniotic twin 203798491 O30.872 8716063 Obesity 190420833 O99.21 3 28285997 Anemia of 2734 2003 O99.013 84850141 Gestation period, 33 weeks 37992067 Z3A.33 5247477 Symmetrica l growth retardation 674902549 O36.5991 O36.5992 96512413 70404803 Anemia in mother complicating , childbirth AND/OR puerperium 24067984 O99.013 66213134 [id number] Marleen barragan CNM [facility] [address] [place] [address] 02/22/2024 15:58:51 02/22/2024 16:53:21 High risk 85335471 O09.384 0092992 Gestation period, 35 weeks 12951500 Z3A.35 0436045 [id number] Marleen barragan CNM [facility] [address] [place] [address] 02/29/2024 11:19:25 02/29/2024 12:57:30 screening 683488948 Z36.85 High risk 4720 0007 O09.563 1887768 Gestation period, 36 weeks 20241779 Z3A.36 7376939 [id number] Sweetie Dove MD [address] [address] 03/03/2024 12:00:40 03/03/2024 14:59:14 Dichorionic diamniotic twin 861662772 O30.148 0512356 Gestation period, 36 weeks 27176501 Z3A.36 1340430 Multigravida 473284047 Z 34.83 21797472 Symmetrica l growth retardation 169684416 O36.5991 51246631 [id number] Sweetie Dove MD [address] [address] 03/25/2024 12:49:55 03/25/2024 13:31:24 Postoperative visit 238592615 Z09 Reviewed Surgical findings. Patient instructed to maintain strict pelvic rest and no heavy lifting greater than 20 lbs. She was instructed to return for a visit in 4 weeks. All of her questions were answered. Injection of medroxyprogesterone acetate 270444448 Z30.013 690820 Past pregn cici history of pre-eclampsia 6576344687 03612 Z87.59 896684 Continue Labetalol 300 mg po TID for now. Follow up in 3 weeks Depression screening 171 259738 Z13.32 5821783901 [id number] Nya Vega CNM [address] [address] 03/25/2024 14:31:03 03/28/2024 13:03:18 Surveillance of depot contraception 698886456 Z30.42 758904 [id number] RABIA CHAUDHARI NP [address] [address] 05/31/2024 11:53:14 05/31/2024 14:56:06 Venereal disease screening 783866693 Z11.3 7004124 820385 Acute vaginitis 22106145 N76.0 Patient with yellow opaque vaginal discharged for 2 weeks. patient denies cramping or bleeding. She does note vaginal irritation when voiding. [id number] BRADEN DAVISON [facility] [address] [place] [address] 03/16/2025 11:23:08 03/16/2025 17:49:59 Venereal disease screening 660385055 Z11.3 0893294 Missed period 06883072 N 92.6 5552469 Positive UPT in office today, pt will return for confirmati on visit. OB booklet given. Rx for PNV sent. test positive 849740545 Z32.01 940307 Health Concerns Section Related Observation LastModified by Organization Detai ls LastModified Time None Recorded Concern Status LastModified by Organization Details LastModified Time None Recorded Advance Directives Directive None Recorded Payers Insurance Date Sequence Insurance Name Policy Number Policy Leggett Covered Member ID Leggett Member ID Guarantor Name 03/27/2025 1 [facility] (MEDICAID HMO) [id number] Murphy S Hardwick [id number] Murphy S Hardwick 03/27/2025 1 [employer] [id number] Murphy S Hardwick [id number] Sandynai S Hardwick 03/27/2025 1 [facility] (MEDICAID HMO) [id number] 003 Reynaldosanai S Hardwick [id number] Reynaldosanai S Hardwick 03/27/2025 [facility] (MEDICAID HMO) [id number] 003 Reynaldosanai S Hardwick [id number] Reynaldosanai S Hardwick 03/27/2025 1 [employer] [id number] Anil Diaz Hardwick [id number] Sandynai S Hardwick 03/27/2025 2 [place] [employer] [place] [employer] Murphy Diaz Hardwick [id number] Sandynai S Hardwick 03/16/2025 1 *SELF PAY* Reynaldo Hardwick Notes Date Note Type Note Provider Name and Address Organization Details Recorded Time 03/03/2024 text/html Murphy 29 y/o here for OB visit, she is HR for di di twins, she is 36/3 weeks, denies any vaginal spotting, bleeding, fluid leakage, c/o mild cramping, movement noted, NST done today GBS done on 02/29/2024 Sweetie Dove MD [address] [place] [address], [place], [phone], [facility] [employer] IV 03/03/2024 13:46:57 03/25/2024 text/html Post-OpReported by PatientHPIFor associated symptoms, patient reportspoor appetite,constipati on, andbleeding. For onset/timing, patient reportsdate of surgery: (03/07/24). For quality, (c- section). Pt had a csection on 03/07/24. Pt is here for c section . Pt states she is doing some bleeding but not changing pad every hour. Pt states she has some pain. Reports 140/80 BP @ [facility] office today. Would like Depo Provera for contraception Sweetie Dove MD [address] [place] [address], [phone], [facility] [employer] IV 04/02/2024 08:08:08 05/31/2024 text/html ROS as noted in the HPI Patient presents today for STI screening, including bloodwork. Patient denies exposure. Patient repors vaginal, yellow in color, slight odor with burning and itching. Patient has been on Depo since the of her twins in late Feb. Patient also concerned about her c sec scar. RABIA CHAUDHARI NP [address] [place] [address], [phone], [facility] [employer] IV 05/31/2024 14:49:16 03/16/2025 text/html ROS as noted in the HPI Murphy is a 30yr old here today for std screening. Pt is not having any symptoms just would like a check. Missed menses would also like test. She states she has been having occasional nausea and vomiting. BRADEN DAVISON [address] [place] [address], [place], [phone], [facility] [employer] 03/16/2025 17:43:23 OBGyn Episode Ob Episode Information Episode Created Date Number of Fetuses Patient Bloodtype Patient rh Status Prepregnancy Weight lbs Domestic Partner Domestic Partner Phone Father Name Pilot Teacher Status 02/22/20 24 1 CLOSED Fetus Data First Name Last Name Admitted to NICU Weight (g) Sex Living Outcome Pediatric Complications Fetus ID Race Codes Race Delivery Type , Induced [id number] Jovan Calculation Initial Jovan Date Initial Exam Date Initial Exam Provider Initial Ultrasound Date Last Menstrual Period Date Ultra Sound Weeks Gestation 0 Eighteen To Twenty Week Jovan Update Ultra Sound Date Fundal Height At Umbil Quickening Date Ultra Sound Latest Weeks Gestation Final Jovan Confirmed By Final Jovan Confirmed Date Final Jovan Date Ultra Sound Latest Days Gestation 0 0 Menstrual History Last Menstrual Date Menses Monthly On Bcp Conception Prior Menses Frequency Hcg Plus Date Menarche Onset Age Delivery Information Delivery Date Delivery Type Labor Anesthesia Weeks Gestation Incision Type Labor Labor Length Hrs Delivered By Post Complications Tubal Sterilization Discharge Date Comments 3 Discharge Information Feeding Method Contraceptive Method Maternal HG B and HCT Levels Ob Episode Information Episode Created Date Number of Fetuses Patient Bloodtype Patient rh Status Prepregnancy Weight lbs Domestic Partner Domestic Partner Phone Father Name Pilot Teacher Status 09/17/19 24 2 B Positive CLOSED Fetus Data First Name Last Name Admitted to NICU Weight (g) Sex Living Outcome Pediatric Complications Fetus ID Race Codes Race Delivery Type Kensle y false 2421.04 73 F true Full Term [id number] Black or Afric an Ameri can Primary Jhersi false 2469.26 93619 F true Full Term [id number] Black or Afric an Ameri can Primary Problems Problem Notes Delivery Plans: [facility] maliha Underwood tour/classes. Pt advised to see delivery providers only for remainder of . Problem Name Start Date End Date Resolution Snomed Code Not e Iron deficiency anemia of 01/12/20241991981506984 Hgb 9.9 at 28 w ks. Hgb Elec WNL. Rx'd FeSO4 --> 02/08/24: Pt taking without complication. Plan to repeat CBC and Iron panel at 34 wks. Reminder in pop-up. High risk 05257759 NOB labs: B+/RI/NRx4. Last Pap: 05/2022 ASCUS, HPV neg. GTT: 131 GBS: TBD @ 36 wks. Aneuploidy screening: [facility] NIPT & MSAFP WNL. Anatomy Scan: Complete X 2 with [facility] on 11/10/23. Hx: [id number], Delivery Methods: Vag X Past history of gestational hypertension 853456109 with G1, had Mg SO4 in the hospital during delivery/post . on LD ASA. Baseline Plt/AST/ALT WNL in 12/2023. UPCR records not on file. --> Update 02/08/24: No ASA refills needed. BP: 118/68, Urine neg for protein. UPCR sent. Pt educated on HTN/PreE precautions and discussed when to notify HCP/go to L&D. Dichorionic diamniotic twin 901495168 Di/Di. Seeing MFM. See Above POC. Genital herpes simplex 2270841 6 Body mass index 30+ - obesity 474979259 BMI 32.5 on int brodie. HgA1C 4.9. GTT 131. growth restriction 01/26/2024 36695364 Dx in 01/2024. U /S 11/09: A 24.2%/B 28.8%, 01/27: A 4%/B 8%. UA dopplers borderline increased placental resistance X 2. S/P MFM consult. MFM Recommendation: NST twice weekly, BPP+Dopplers Weekly. Delivery between 36-38 wks. Last BPP 10/10 x 2 with MFM on 02/02/24. --> Update 02/08/24: NST reassuring X 2, BPP 8/8 X 2 prior to leaving office. Pt has appt with MFM at 1:00 PM today. Encouraged scheduling weekly NST with OBV with delivery providers only for remainder of . Pt also encouraged to keep all appts with MFM through remainder of . Pt educated FKC, PTL precautions, and when to notify HCP/go to L&D. Jovan Calculation Initial Jovan Date Initial Exam Date Initial Exam Provider Initial Ultrasound Date Last Menstrual Period Date Ultra Sound Weeks Gestation 03/28/2024 09/17/2023 09/08/2023 07/10/2023 11 Eighteen To Twenty Week Jovan Update Ultra Sound Date Fundal Height At Umbil Quickening Date Ultra Sound Latest Weeks Gestation Final Jovan Confirmed By Final Jovan Confirmed Date Final Jovan Date Ultra Sound Latest Days Gestation 0 awittler 02/05/2024 11/18/20 24 0 Pre-joel Flowsheet Flowsheet Date 09/17/2023 Foster Score Blood Edema Fundus Height Fundus Units Glucose Ketones Leukocytes Nitrite Labor Signs Protein Cervic Dilation Cervic Effacement Cervic Station none Type Weight in lbs Pre/Post Dialysis Refused Weight 216.964879973157 BP Diastolic BP Location Tested BP Systolic BP Type 70 118 Fetus Heart Rate Present A 164 Present B 153 Present Fetus Movement Comments NOB labs done today. Accepts UNITY. PAP up to date. Low dose aspirin recommended. Pre- BMI: 32.5. RTC 4 weeks. Flowsheet Date 10/14/2023 Foster Score Blood Edema Fundus Height Fundus Units Glucose Ketones Leukocytes Nitrite Labor Signs Protein Cervic Dilation Cervic Effacement Cervic Station none Type Weight in lbs Pre/Post Dialysis Refused Weight 188.918850651720 BP Diastolic BP Location Tested BP Systolic BP Type 68 116 sitting Fetus Heart Rate Present A 148 Present B 155 Present Fetus Movement A Yes B Yes Comments No OB complaints. Maternal S kell AFP collected today. Anatomy next visit. Flowsheet Date 11/10/2023 Foster Score Blood Edema Fundus Height Fundus Units Glucose Ketones Leukocytes Nitrite Labor Signs Protein Cervic Dilation Cervic Effacement Cervic Station none Type Weight in lbs Pre/Post Dialysis Refused Weight 194.518053695082 BP Diastolic BP Location Tested BP Systolic BP Type 68 122 Fetus Heart Rate Present A 155 B 155 Fetus Movement A Yes B Yes Comments Anatomy complete x2. MSAFP c ompleted. Denies questions or concerns. PTL/PIH precautions reviewed. Flowsheet Date 11/30/2023 Foster Score Blood Edema Fundus Height Fundus Units Glucose Ketones Leukocytes Nitrite Labor Signs Protein Cervic Dilation Cervic Effacement Cervic Station none Type Weight in lbs Pre/Post Dialysis Refused With clothes 197.156743060705 BP Diastolic BP Location Tested BP Systolic BP Type 70 114 sitting Fetus Heart Rate Present A 142 Present B 141 Present Fetus Movement A Yes B Yes Comments No OB complaints. Flowsheet Date 12/28/2023 Foster Score Blood Edema Fundus Height Fundus Units Glucose Ketones Leukocytes Nitrite Labor Signs Protein Cervic Dilation Cervic Effacement Cervic Station none Type Weight in lbs Pre/Post Dialysis Refused With clothes 203.581438276366 BP Diastolic BP Location Tested BP Systolic BP Type 78 122 sitting Fetus Heart Rate Present A 141 B 144 Present Fetus Movement A Yes B Yes Comments Pt reports headaches and tanvir e dizziness when standing. Reports she drinks 4 bottles of water daily. Education given, will increase water intake. Discussed frequent snacking. 1 hour gct and 3rd Trimester labs collected today. Will need to schedule serial growths. Flowsheet Date 01/12/2024 Foster Score Blood Edema Fundus Height Fundus Units Glucose Ketones Leukocytes Nitrite Labor Signs Protein Cervic Dilation Cervic Effacement Cervic Station none Type Weight in lbs Pre/Post Dialysis Refused With clothes 201.324474003408 BP Diastolic BP Location Tested BP Systolic BP Type 64 118 sitting Fetus Heart Rate Present A 132 B 141 Present Fetus Movement A Yes B Yes Comments No OB complaints. 1 hour gct and 3rd Trimester labs collected today. TDAP Education and order given. Discussed medical doctor nuclear medicine selection. Education for PP contraception given. Will get growth next visit. Flowsheet Date 01/26/2024 Foster Score Blood Edema Fundus Height Fundus Units Glucose Ketones Leukocytes Nitrite Labor Signs Protein Cervic Dilation Cervic Effacement Cervic Station Type Weight in lbs Pre/Post Dialysis Refused Weight 205.706974110347 BP Diastolic BP Location Tested BP Systolic BP Type 70 110 Fetus Heart Rate Present A 130 B 140 Fetus Movement Comments bpp 12/16 and Spoke w/Dr Limon and she isccoordinating appt in [place] for growth and assessment and they will call patient Flowsheet Date 02/01/2024 Foster Score Blood Edema Fundus Height Fundus Units Glucose Ketones Leukocytes Nitrite Labor Signs Protein Cervic Dilation Cervic Effacement Cervic Station trace Type Weight in lbs Pre/Post Dialysis Refused 209.255247545359 BP Diastolic BP Location Tested BP Systolic BP Type 60 L arm 110 supine Fetus Heart Rate Present A 140 B 140 Present Fetus Movement A Yes B Yes Comments Good movements/adequat e fluid. MFM will see her on for BPP and we will see her on Mondays for NST. Flowsheet Date 02/08/2024 Foster Score Blood Edema Fundus Height Fundus Units Glucose Ketones Leukocytes Nitrite Labor Signs Protein Cervic Dilation Cervic Effacement Cervic Station none 43 cm none none neg Type Weight in lbs Pre/Post Dialysis Refused With clothes 206.643859293197 BP Diastolic BP Location Tested BP Systolic BP Type 68 L arm 118 sitting Fetus Heart Rate Present A 153 Present B 168 Present Fetus Movement A Yes B Yes Comments See Visit Plan/Above Problem List. NST Reassuring X 2, BPP 8/10 X 2. UPCR & GCCT Missing from NOB labs. Sent via urine on 02/08/24. FLU, TDAP, RSV vaccine information discussed on 02/08/24. Pt has already had COVID booster. Flowsheet Date 02/22/2024 Foster Score Blood Edema Fundus Height Fundus Units Glucose Ketones Leukocytes Nitrite Labor Signs Protein Cervic Dilation Cervic Effacement Cervic Station none trace Type Weight in lbs Pre/Post Dialysis Refused With clothes 21.7844611546759 BP Diastolic BP Location Tested BP Systolic BP Type 70 110 sitting Fetus Heart Rate Present Fetus Movement A Yes Comments was seen at [facility] right before this apt, Both babies passed BPP Will stagger apts moving forward Flowsheet Date 02/29/2024 Foster Score Blood Edema Fundus Height Fundus Units Glucose Ketones Leukocytes Nitrite Labor Signs Protein Cervic Dilation Cervic Effacement Cervic Station none trace Type Weight in lbs Pre/Post Dialysis Refused With clothes 215.691467085437 BP Diastolic BP Location Tested BP Systolic BP Type 80 120 sitting Fetus Heart Rate Present A 131 B 150 Fetus Movement A Yes B Yes Comments discussed likely CS and to s ee Dr with next apt to discuss. [facility] apt today will have NST with us on 03/03 Flowsheet Date 03/03/2024 Foster Score Blood Edema Fundus Height Fundus Units Glucose Ketones Leukocytes Nitrite Labor Signs Protein Cervic Dilation Cervic Effacement Cervic Station none trace Type Weight in lbs Pre/Post Dialysis Refused With clothes 216.08824012899 BP Diastolic BP Location Tested BP Systolic BP Type 80 R arm 130 sitting 76 R arm 126 sitting Fetus Heart Rate Present Fetus Movement A Yes B Yes Comments Flowsheet Date 03/25/2024 Foster Score Blood Edema Fundus Height Fundus Units Glucose Ketones Leukocytes Nitrite Labor Signs Protein Cervic Dilation Cervic Effacement Cervic Station Type Weight in lbs Pre/Post Dialysis Refused With clothes 183.702760616119 BP Diastolic BP Location Tested BP Systolic BP Type 80 110 sitting Fetus Heart Rate Present Fetus Movement Comments Flowsheet Date 03/25/2024 Foster Score Blood Edema Fundus Height Fundus Units Glucose Ketones Leukocytes Nitrite Labor Signs Protein Cervic Dilation Cervic Effacement Cervic Station Type Weight in lbs Pre/Post Dialysis Refused BP Diastolic BP Location Tested BP Systolic BP Type Fetus Heart Rate Present Fetus Movement Comments Flowsheet Date 05/31/2024 Foster Score Blood Edema Fundus Height Fundus Units Glucose Ketones Leukocytes Nitrite Labor Signs Protein Cervic Dilation Cervic Effacement Cervic Station Type Weight in lbs Pre/Post Dialysis Refused With clothes 197.799218778862 BP Diastolic BP Location Tested BP Systolic BP Type 70 114 sitting Fetus Heart Rate Present Fetus Movement Comments Menstrual History Last Menstrual Date Menses Monthly On Bcp Conception Prior Menses Frequency Hcg Plus Date Menarche Onset Age 0307/10/2023 Genetic Screening And Infection History Question Response Note Prior GBS-infected child false Personal or Family History of Congenital Heart D efect false History of Hepatitis false Maternal Metabolic Disorder (eg, Type 1 Diabetes , PKU) false Recurrent Loss, Or A Stillbirth false Genetic Carrier Screen positive false Patient Or Partner Has History Of Genital Herpes true Patient Patient's Age Will Be 35 Yea rs Or Older At Estimated Date of Delivery false Personal or Family History o f Neural Tube Defect (Meningomyelocele, Spina Bifida, Or Anencephaly) false History of HIV false Delivery Information Delivery Date Delivery Type Labor Anesthesia Weeks Gestation Incision Type Labor Labor Length Hrs Delivered By Post Complications Tubal Sterilization Discharge Date Comments 4 [facility] 37 Low Transvers e Sweetie Dove MD 03/11/2024 Discharge Information Feeding Method Contraceptive Method Maternal HG B and HCT Levels Bottle Ob Episode Information Episode Created Date Number of Fetuses Patient Bloodtype Patient rh Status Prepregnancy Weight lbs Domestic Partner Domestic Partner Phone Father Name Pilot Teacher Status 07/26/19 22 1 CLOSED Fetus Data First Name Last Name Admitted to NICU Weight (g) Sex Living Outcome Pediatric Complications Fetus ID Race Codes Race Delivery Type 2806.37 3704 M Full Term [id number] Assisted VD - forceps, vacuum Jovan Calculation Initial Jovan Date Initial Exam Date Initial Exam Provider Initial Ultrasound Date Last Menstrual Period Date Ultra Sound Weeks Gestation 0 Eighteen To Twenty Week Jovan Update Ultra Sound Date Fundal Height At Umbil Quickening Date Ultra Sound Latest Weeks Gestation Final Jovan Confirmed By Final Jovan Confirmed Date Final Jovan Date Ultra Sound Latest Days Gestation 0 0 Menstrual History Last Menstrual Date Menses Monthly On Bcp Conception Prior Menses Frequency Hcg Plus Date Menarche Onset Age Delivery Information Delivery Date Delivery Type Labor Anesthesia Weeks Gestation Incision Type Labor Labor Length Hrs Delivered By Post Complications Tubal Sterilization Discharge Date Comments 6 39 false IOL for GHTN. VAVD. Delivered by Tamera Bernabe MD. Pt was on MgSO4. Discharge Information Feeding Method Contraceptive Method Maternal HG B and HCT Levels Ob Episode Information Episode Created Date Number of Fetuses Patient Bloodtype Patient rh Status Prepregnancy Weight lbs Domestic Partner Domestic Partner Phone Father Name Pilot Teacher Status 07/26/19 22 1 CLOSED Fetus Data First Name Last Name Admitted to NICU Weight (g) Sex Living Outcome Pediatric Complications Fetus ID Race Codes Race Delivery Type 3033.16 9704 M Full Term [id number] Jovan Calculation Initial Jovan Date Initial Exam Date Initial Exam Provider Initial Ultrasound Date Last Menstrual Period Date Ultra Sound Weeks Gestation 0 Eighteen To Twenty Week Jovan Update Ultra Sound Date Fundal Height At Umbil Quickening Date Ultra Sound Latest Weeks Gestation Final Jovan Confirmed By Final Jovan Confirmed Date Final Jovan Date Ultra Sound Latest Days Gestation 0 0 Menstrual History Last Menstrual Date Menses Monthly On Bcp Conception Prior Menses Frequency Hcg Plus Date Menarche Onset Age Delivery Information Delivery Date Delivery Type Labor Anesthesia Weeks Gestation Incision Type Labor Labor Length Hrs Delivered By Post Complications Tubal Sterilization Discharge Date Comments 9 None 39.2 false Discharge Information Feeding Method Contraceptive Method Maternal HG B and HCT Levels Ob Episode Information Episode Created Date Number of Fetuses Patient Bloodtype Patient rh Status Prepregnancy Weight lbs Domestic Partner Domestic Partner Phone Father Name Pilot Teacher Status 07/26/19 22 1 DELETED Jovan Calculation Initial Jovan Date Initial Exam Date Initial Exam Provider Initial Ultrasound Date Last Menstrual Period Date Ultra Sound Weeks Gestation 0 Eighteen To Twenty Week Jovan Update Ultra Sound Date Fundal Height At Umbil Quickening Date Ultra Sound Latest Weeks Gestation Final Jovan Confirmed By Final Jovan Confirmed Date Final Jovan Date Ultra Sound Latest Days Gestation 0 0 Menstrual History Last Menstrual Date Menses Monthly On Bcp Conception Prior Menses Frequency Hcg Plus Date Menarche Onset Age Delivery Information Delivery Date Delivery Type Labor Anesthesia Weeks Gestation Incision Type Labor Labor Length Hrs Delivered By Post Complications Tubal Sterilization Discharge Date Comments 9 None 15 false EAB Discharge Information Feeding Method Contraceptive Method Maternal HG B and HCT Levels Ob Episode Information Episode Created Date Number of Fetuses Patient Bloodtype Patient rh Status Prepregnancy Weight lbs Domestic Partner Domestic Partner Phone Father Name Pilot Teacher Status 07/26/19 22 1 DELETED Jovan Calculation Initial Jovan Date Initial Exam Date Initial Exam Provider Initial Ultrasound Date Last Menstrual Period Date Ultra Sound Weeks Gestation 0 Eighteen To Twenty Week Jovan Update Ultra Sound Date Fundal Height At Umbil Quickening Date Ultra Sound Latest Weeks Gestation Final Jovan Confirmed By Final Jovan Confirmed Date Final Jovan Date Ultra Sound Latest Days Gestation 0 0 Menstrual History Last Menstrual Date Menses Monthly On Bcp Conception Prior Menses Frequency Hcg Plus Date Menarche Onset Age Delivery Information Delivery Date Delivery Type Labor Anesthesia Weeks Gestation Incision Type Labor Labor Length Hrs Delivered By Post Complications Tubal Sterilization Discharge Date Comments 1 None false Discharge Information Feeding Method Contraceptive Method Maternal HG B and HCT Levels Ob Episode Information Episode Created Date Number of Fetuses Patient Bloodtype Patient rh Status Prepregnancy Weight lbs Domestic Partner Domestic Partner Phone Father Name Pilot Teacher Status 11/28/19 23 1 B Positive CLOSED Fetus Data First Name Last Name Admitted to NICU Weight (g) Sex Living Outcome Pediatric Complications Fetus ID Race Codes Race Delivery Type [id number] Jovan Calculation Initial Jovan Date Initial Exam Date Initial Exam Provider Initial Ultrasound Date Last Menstrual Period Date Ultra Sound Weeks Gestation 06/04/2023 11/27/2022 0 Eighteen To Twenty Week Jovan Update Ultra Sound Date Fundal Height At Umbil Quickening Date Ultra Sound Latest Weeks Gestation Final Jovan Confirmed By Final Jovan Confirmed Date Final Jovan Date Ultra Sound Latest Days Gestation 0 heraclio 11/27/2022 024 0 Pre- Flowsheet Flowsheet Date 11/27/2022 Foster Score Blood Edema Fundus Height Fundus Units Glucose Ketones Leukocytes Nitrite Labor Signs Protein Cervic Dilation Cervic Effacement Cervic Station none Type Weight in lbs Pre/Post Dialysis Refused With clothes [id number] BP Diastolic BP Location Tested BP Systolic BP Type 60 110 sitting Fetus Heart Rate Present A 149 Present Fetus Movement A Yes Comments No OB complaints. Patient st ates she is dealing with some constipation, Colace Rx sent. Will start low dose ASA today. NOB and unity labs today. RTC in 4 weeks. Menstrual History Last Menstrual Date Menses Monthly On Bcp Conception Prior Menses Frequency Hcg Plus Date Menarche Onset Age Genetic Screening And Infection History Question Response Note Thalassemia (Setswana, Trinidadian, Mediterranean, Or Background): MCV < 80 false Intellectual Disability/Autism false Personal or Family History of Congenital Heart D efect false History of Hepatitis false Muscular Dystrophy false Sickle Cell Disease Or Trait () false Patient Or Partner Has History Of Genital Herpes false Hemophilia Or Other Blood Disorders false Davina Disease false Patient's Age Will Be 35 Years Or Older At Estim ated Date of Delivery false If Yes, Agent(s) And Strength/Dosage false Medications (including Suppl ements, Vitamins, Herbs, OTC Drugs), Illicit/Recreational Drugs, Alcohol false Other Structural Defect false Recent Travel History Outside of Country false Maternal Metabolic Disorder (eg, Type 1 Diabetes , PKU) false Benja-Sachs (eg, Shinto, Cajun, Qatari-Comoran) f alse Other Infection History false Lincroft's Chorea false Cystic Fibrosis false Recurrent Loss, Or A Stillbirth false Rash Or Viral Illness Since Last Menstrual Perio d false Live With Someone With TB Or Exposed To TB false Mental Retardation/Autism false If Yes, Was Person Tested For Fragile X? false History of HIV false Any Other Genetic History false Hemoglobinopathy Or Carrier false Prior GBS-infected child true Down Syndrome false Other Inherited Genetic Or Chromosomal Disorder false Patient Or Baby's Father Had A Child With Defects Not Listed Above false Personal or Family History o f Neural Tube Defect (Meningomyelocele, Spina Bifida, Or Anencephaly) false History Of STD, Gonorrhea, Chlamydia, HPV, Syphi lis false Delivery Information Delivery Date Delivery Type Labor Anesthesia Weeks Gestation Incision Type Labor Labor Length Hrs Delivered By Post Complications Tubal Sterilization Discharge Date Comments Discharge Information Feeding Method Contraceptive Method Maternal HG B and HCT Levels
--- OUTSIDE RECORDS SUMMARY | 2025-03-29 13:36 | XMS_ITS | Clinical Summary ---
Author Organization [facility] Address [address] [place] [address] Care Team Providers Care Gold Charmer Name Role Phone No, Physician Primary Care Provider [phone] Sweetie Dove MD Unavailable [phone] Allergies No known active allergies Medications vitamin ferrous fumarate-folic () 28 mg iron- 800 mcg tablet Take 1 tablet every day by oral route. 09/11/2023 Active labetaloL (NORMODYNE,TRAND ATE) 300 mg tabletIndication s: delivery delivered Take 1 tablet (300 mg total) by mouth every 8 (eight) hours 90 tablet 11 03/11/2024 Active ferrous sulfate 325 mg (65 mg of elemental iron) tablet Take 1 tablet (325 mg total) by mouth 2 (two) times a day 60 tablet 1 03/11/2024 Active Active Problems Problem Noted Date Diagnosed Date Dichorionic diamniotic twin in third t rimester 03/07/2024 37 weeks gestation of 03/07/2024 IUGR (intrauterine growth re striction) affecting care of mother, third trimester, fetus 1 03/07/2024 delivery delivered 03/07/2024 Medical History Medical History Date Comments Herpes Hypertension affecting 2016 Obesity Iron deficiency anemia during Social History Tobacco Use Types Packs/Day Years Used Date Smoking Tobacco: Never Smokeless Tobacco: Never Tobacco Cessation:Counseling Given: Not Answered AUDIT-C Answer Date Recorded Q1: How often do you have a drink containing alcohol? Never 03/07/2024 Q2: How many drinks containi ng alcohol do you have on a typical day when you are drinking? Patient does not drink Q3: How often do you have si x or more drinks on one occasion? Never 03/07/2024 Overall Financial Resource Strain (CARDIA) Answe r Date Recorded How hard is it for you to pa y for the very basics like food, housing, medical care, and heating? Not hard at all 03/07/2024 Hunger Vital Sign Answer Date Recorded Within the past 12 months, y ou worried that your food would run out before you got the money to buy more. Never true 03/07/20 24 Within the past 12 months, t he food you bought just didn't last and you didn't have money to get more. Never true 03/07/2024 PRAPARE - Transportation Answer Date Re corded In the past 12 months, has l ack of transportation kept you from medical appointments or from getting medications? No 02/09 In the past 12 months, has l ack of transportation kept you from meetings, work, or from getting things needed for daily living? No 03/07/2024 Caspar Depression Scale Answer Date Recorded Caspar Depression Scale Total 2 03/09/2024 The thought of harming myself has occurred to me . Never 03/09/2024 Housing Stability Vital Sign Answer Jayson e Recorded Unable to Pay for Housing in the Last Year Not o n file 03/07/2024 Number of Times Moved in the Last Year Not on fi le 03/07/2024 At any time in the past 12 m [facility], were you homeless or living in a usp (including now)? No 03/07/2024 Personal Safety Answer Date Recorded Have you ever been in or are you currently in a harmful physical or emotional relationship or is someone making you feel afraid or unsafe? 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 Gender Identity Not on file Sexual Orientation Not on file Obstetrics History Para Term AB IAB SAB Ectopic Multiple Livin g Live Births 4 3 3 1 1 1 4 4 Date Outcome GA Total Labor Labor/2nd/3rd Weight Sex Type Anes PTL Juli A1 A5 Name Clin 2015 Term 2.722 kg (6 lb) M Vag-F orcep s Livin g Complications:None,Gestation al hypertension 2018 Term 2.722 kg (6 lb) M Vag-S pont Livin g Complications:None 2022 IAB 2023 Term 37w 0d 0h 04m 0h 04m 2.47 kg (5 lb 7.1 oz) F C-Sec tion Spinal Livin g 8 9 Jhersi L S Sweetie Myles MD Delivery Location:[facility] ([facility] L AND D PROCEDURE) 2023 Term 37w 0d 0h 02m 0h 02m 2.42 kg (5 lb 5.4 oz) F C-Sec tion Spinal Livin g 8 9 EricsSweetie Gifford MD Delivery Location:[facility] ([facility] L AND D PROCEDURE) Comments growth restriction Dx in 01/2024. U/S 11/09: A 24.2%/B 28.8%, 01/27: A 4%/B 8%. UA dopplers borderline increased placental resistance X 2. S/P MFM consult. MFM Recommendation: NST twice weekly, BPP+Dopplers Weekly. Delivery between 36-38 wks. Last BPP 02/17 x 2 with MFM on 02/02/24. Last Filed Vital Signs Vital Sign Reading Time Taken Comments Blood Pressure 124/77 03/11/2024 9:00 AM CDT Pulse 79 03/11/2024 9:00 AM CDT Temperature 36.7 C (98.1 F) 03/11/2024 9:00 AM CDT Respiratory Rate 18 03/11/2024 9:00 AM CDT Oxygen Saturation 99% 03/11/2024 9:00 AM CDT Inhaled Oxygen Concentration - - Weight 93.9 kg (207 lb) 01/28/2024 5:49 PM CDT Height 162.6 cm (5' 4) 01/28/2024 5:49 PM CDT Body Mass Index 35.53 01/28/2024 5:49 PM CDT Plan of Treatment Health Maintenance Due Date Last Done Comments Cervical Cancer Screening 1994 Hepatitis C Screening 1994 Varicella Vaccines (1 of 2 - 13+ 2-dose series) 2007 Regular Well Visit/Exam 18-64 01/24/2012 HPV Vaccines (3 - 3-dose series) 01/27/2013 10/26/2012, 07/27/2012 Covid-19 Vaccine (2 - 2024- season) 2025 03/22/2022 Influenza Vaccine (#1) 2025 8, 05/01/2016, 05/15/2015 Depression Screening 03/09/2025 03/09/2024 DTaP/Tdap/Td Vaccine (7 - Td or Tdap) 04/20/2028 04/20/2018, 05/01/2016, 12/02/1996, Additional history exists Hepatitis B Screening Completed 07/27/2012 , 02/19/1996, 06/12/1995, Additional history exists Pneumococcal vaccine <65 Aged Out No longer eligible based on patient's age to complete this topic Insurance Advance Directives For more information, please contact: [phone] * Full Code (Latest Code Status on File) Date Activated Date Inactivated Comments 03/07/2024 3:26 PM 03/11/2024 6:43 PM * Full Code Date Activated Date Inactivated Comments 03/07/2024 11:38 AM 03/07/2024 3:26 PM Full CPR in case of cardiopulmonary arrest Care Teams Gold Charmer Relationship Specialty Start Date End Date No, Physician PCP - General 10/27/22 Sweetie Dove MD Consulting Physician Obstetrics and Gynecology 03/11/24
[2025-03-29 13:42] LABS: Hematocrit 37.7 % (37.0-47.0); Hemoglobin 12.5 g/dL (12.0-15.0); Immature Granulocyte Percent A 0.4 % (0-0.5); Lymphocytes Absolute Auto 1.92 K/mm3 (0.9-3.2); Mean Corpuscular HGB Conc 33.2 g/dl (32-36); Mean Corpuscular Hemoglobin 29.6 pg (26-34); Mean Corpuscular Volume 89.3 fl (80-100); Nucleated Red Blood Cells Absolute Auto 0.000 K/mm3 (0.0-0.012); Nucleated Red Blood Cells Perc 0.0 % (0.0-0.2); Platelet Count Result 307 k/mm3 (150-375); Red Blood Count 4.22 M/mm3 (4.2-5.4); White Blood Count 10.1 K/mm3 (4.5-10.0)
--- NOTE | 2025-03-29 15:56 | PC.NURSE ---
Addendum entered by Otilia Torrez RN 03/29/25 15:57: per the lab, it is running provider notified Original Note: lab called d/t pts beta HCG still being pending
[2025-03-29 18:41] VITALS: BP 116/58; PULSE 85; RESP 16; O2SAT 99
== END 2025-03-29 18:43 | disposition home or self-care (01) ==
PROVIDERS: Emergency Provider Emergency Medicine
DX: O23.41 Unspecified infection of urinary tract in pregnancy, first trimester (principal); N39.0 Urinary tract infection, site not specified; Z3A.10 10 weeks gestation of pregnancy
CPT/HCPCS: 36415; 76801; 80053; 81001; 81025; 84702; 85025; 86850; 86900; 86901; 99284; A9270